=== PATIENT | female | born 1955 | race American Indian/Alaskan Native ===

== ENCOUNTER 2017-01-23 00:37 | Inpatient (IN) | payer MEDICARE ==
[2017-01-23] MEDS ORDERED: NITROSTAT SL PRN (01:02)
--- NOTE | 2017-01-23 01:03 | Emergency Department Report ---
ED Chest Pain HPI - General Chief Complaint: Chest Pain Stated Complaint: CHEST PAIN Time Seen by Provider: 01/23/17 00:50 Source: patient, EMS (ems notes not available at time of chart dictation), RN notes reviewed, old records reviewed Mode of arrival: Stretcher Limitations: No Limitations - History of Present Illness Initial Comments: Past medical history: Diverticulosis, chronic kidney disease, heart disease with multiple stents, currently on Plavix, ischemic cardiac myopathy, diabetes, hypothyroidism, hypertension Primary port warden: Gale Nephrology: Leslie Valenzuela This is a 61-year-old female. She is previously unknown to me. She is brought to the hospital by EMS. She has a complaint of chest pain. The chest pain is central, and left-sided. It radiates to the left shoulder. Positive shortness of breath. No nausea, vomiting, diaphoresis. No hematemesis. No bright red blood per rectum. Patient reports compliance with her medications. She is currently on Plavix, not taking aspirin. There is no leg pain. There is no leg swelling. No recent trips greater than 4 hours. No recent hospital admissions. Patient reports her chest pain is currently a "6", she reports that it was previously a 9. Pain improved with nitroglycerin. MD Complaint: chest pain -: Gradual Onset: during rest Pain Location: left chest Severity: moderate Quality: aching, pressure Consistency: intermittent Improves With: nitroglycerin, rest Worsens With: nothing re: dyspnea Treatments Prior to Arrival: nitroglycerin Aspirin use within the Past 7 Days: (0) No - Related Data On Oral Contraceptives: No Previous Rx's Medication Instructions Recorded Last Taken Type Tramadol HCl [traMADol] 50 mg PO Q6HR #30 tablet 01/31/15 12/30/16 Rx Nitroglycerin [Nitrostat] 0.4 mg SL Q5M PRN #20 tab 05/19/15 01/22/17 Rx Pravastatin (Nf) [Pravachol] 40 mg PO QHS #30 tablet 05/19/15 01/22/17 Rx Clopidogrel [Plavix] 75 mg PO QDAY #30 tablet 12/01/16 01/22/17 Rx Insulin Glargine [Lantus VIAL] 5 units SUB-Q QHS #20 units 12/01/16 01/22/17 Rx Levothyroxine [Synthroid] 75 mcg PO QAM #30 tablet 12/01/16 01/22/17 Rx Metoprolol [Lopressor TAB] 25 mg PO BID #60 tablet 12/01/16 01/22/17 Rx Pantoprazole [Protonix TAB] 40 mg PO QDAY #30 tablet 12/01/16 01/22/17 Rx Ranolazine ER [Ranexa ER] 1,000 mg PO BID #120 tablet 12/01/16 01/22/17 Rx Allergies Allergy/AdvReac Type Severity Reaction Status Date / Time codeine Allergy Vomiting Verified 01/31/15 09:28 penicillin Allergy Vomiting Verified 05/17/15 11:21 prochlorperazine edisylate Allergy Vomiting Verified 01/31/15 09:28 [From Compazine] prochlorperazine maleate Allergy Vomiting Verified 01/31/15 09:28 [From Compazine] ALEJANDRO score - Alejandro Score Age > 65: (0) No Aspirin use within the Past 7 Days: (0) No 3 or more CAD Risk Factors: (1) Yes 2 or more Angina events in past 24 hrs: (0) No Known CAD with more than 50% Stenosis: (0) No Elevated Cardiac Markers: (0) No ST Deviation Greater than 0.5mm: (0) No ALEJANDRO Score: 1 ED Review of Systems ROS: Stated complaint: CHEST PAIN Other details as noted in HPI Constitutional: denies: diaphoresis, fever Eyes: denies: eye discharge ENT: denies: epistaxis Respiratory: see HPI Cardiovascular: chest pain Gastrointestinal: denies: abdominal pain, hematemesis, melena, hematochezia Genitourinary: denies: urgency, dysuria Musculoskeletal: denies: back pain Skin: denies: lesions Neurological: denies: headache, weakness Psychiatric: anxiety ED Past Medical Hx - Past Medical History Previous Medical History?: Yes Hx Hypertension: Yes Hx CVA: Yes (x 3) Hx Heart Attack/AMI: Yes (x3) Hx Congestive Heart Failure: Yes Hx Diabetes: Yes Hx Renal Disease: Yes (chronic) - Surgical History Past Surgical History?: Yes Hx Coronary Stent: Yes (x2 2016) Hx Cholecystectomy: Yes - Social History Smoking Status: Never Smoker - Medications Home Medications: Home Medications Medication Instructions Recorded Confirmed Last Taken Type Tramadol HCl [traMADol] 50 mg PO Q6HR #30 tablet 01/31/15 01/23/17 12/30/16 Rx Nitroglycerin [Nitrostat] 0.4 mg SL Q5M PRN #20 tab 05/19/15 01/23/17 01/22/17 Rx Pravastatin (Nf) [Pravachol] 40 mg PO QHS #30 tablet 05/19/15 01/23/17 01/22/17 Rx Clopidogrel [Plavix] 75 mg PO QDAY #30 tablet 12/01/16 01/23/17 01/22/17 Rx Insulin Glargine [Lantus VIAL] 5 units SUB-Q QHS #20 units 12/01/16 01/23/17 Rx Levothyroxine [Synthroid] 75 mcg PO QAM #30 tablet 12/01/16 01/23/17 01/22/17 Rx Metoprolol [Lopressor TAB] 25 mg PO BID #60 tablet 12/01/16 01/23/17 01/22/17 Rx Pantoprazole [Protonix TAB] 40 mg PO QDAY #30 tablet 12/01/16 01/23/17 01/22/17 Rx Ranolazine ER [Ranexa ER] 1,000 mg PO BID #120 tablet 12/01/16 01/23/17 Rx ED Physical Exam - General Limitations: No Limitations General appearance: alert, in no apparent distress - Head Head exam: Present: atraumatic, normocephalic - Eye Eye exam: Present: normal appearance, EOMI. Absent: nystagmus - ENT ENT exam: Present: normal exam, normal orophraynx, mucous membranes moist, normal external ear exam - Neck Neck exam: Present: normal inspection, full ROM. Absent: tenderness, meningismus - Respiratory Respiratory exam: Present: normal lung sounds bilaterally, chest wall tenderness. Absent: respiratory distress, wheezes, rales, rhonchi, stridor, decreased breath sounds - Cardiovascular Cardiovascular Exam: Present: regular rate, normal rhythm, normal heart sounds. Absent: bradycardia, tachycardia, irregular rhythm, systolic murmur, diastolic murmur, rubs, gallop - GI/Abdominal GI/Abdominal exam: Present: soft, normal bowel sounds. Absent: distended, tenderness, guarding, rebound, rigid, pulsatile mass - Extremities Exam Extremities exam: Present: normal inspection, full ROM, normal capillary refill. Absent: tenderness, pedal edema, joint swelling, calf tenderness - Back Exam Back exam: Present: normal inspection, full ROM. Absent: tenderness, CVA tenderness (R), CVA tenderness (L), muscle spasm, paraspinal tenderness, vertebral tenderness - Neurological Exam Neurological exam: Present: alert, oriented X3, other (Extraocular movements intact. Tongue midline. No facial droop. Facial sensation intact to light touch in the V1, V2, V3 distribution bilaterally. 5 and 5 strength in 4 extremities.. Sensation is intact to light touch in 4 extremities.). Absent: motor sensory deficit - Psychiatric Psychiatric exam: Present: normal affect, normal mood - Skin Skin exam: Present: warm, dry, intact, normal color. Absent: rash ED Course Vital Signs 01/23/17 01/23/17 01/23/17 01:03 01:10 01:48 Temperature 98.3 F Pulse Rate 84 82 Respiratory 17 18 Rate Blood Pressure 140/75 Blood Pressure 140/75 [Left] O2 Sat by Pulse 98 99 100 Oximetry 01/23/17 01/23/17 01/23/17 01:50 02:00 02:10 Temperature Pulse Rate 91 H 79 78 Respiratory 19 18 14 Rate Blood Pressure 140/75 128/72 128/72 Blood Pressure [Left] O2 Sat by Pulse 98 99 98 Oximetry 01/23/17 01/23/17 01/23/17 02:20 02:30 02:40 Temperature Pulse Rate 77 72 79 Respiratory 13 16 11 L Rate Blood Pressure 124/68 135/64 135/64 Blood Pressure [Left] O2 Sat by Pulse 98 96 99 Oximetry 01/23/17 01/23/17 01/23/17 02:50 03:00 03:10 Temperature Pulse Rate 75 75 80 Respiratory 17 16 17 Rate Blood Pressure 133/76 128/66 128/66 Blood Pressure [Left] O2 Sat by Pulse 97 98 97 Oximetry 01/23/17 01/23/17 01/23/17 03:20 03:30 03:40 Temperature Pulse Rate 79 72 73 Respiratory 13 14 16 Rate Blood Pressure 131/70 118/58 118/58 Blood Pressure [Left] O2 Sat by Pulse 99 97 97 Oximetry - Reevaluation(s) Reevaluation #1: 01/23/17 01:23 Differential diagnosis: Acute coronary syndrome/unstable angina, pneumonia, costochondritis, GERD/gastritis Assessment and plan: 61-year-old female with known history of ischemic coronary artery disease, multiple stents, takes Plavix but not aspirin, which has pain that is partially reproducible. She is afebrile with reassuring vital signs, EKG today demonstrates nonspecific changes with compared to prior EKG. There are multiple T-wave inversions. Patient had a cardiac catheterization approximately one year ago at this facility, which demonstrate a complex arterial disease. Laboratory studies, which are less urine, x-ray ordered and pending. Plan to admit once initial data points back. Reevaluation #2: 01/23/17 02:32 Repeat EKG essentially unchanged. Chest pain is improved. Case is discussed with covering port warden, patient will be started on unfractionated heparin. Aspirin has been given. Dr. Chandler, port warden agrees with this plan. Case is discussed with the Hospital physician, Dr. Bradford, who accepts the patient to his service. ED Medical Decision Making - Lab Data Result diagrams: 01/23/17 03:09 01/23/17 01:11 Vital Signs 01/23/17 01:10 Temperature 98.3 F Pulse Rate 82 Respiratory 18 Rate Blood Pressure 140/75 [Left] O2 Sat by Pulse 99 Oximetry Lab Results 01/23/17 Range/Units 01:11 WBC 9.3 (4.5-11.0) K/mm3 RBC 3.01 L (3.65-5.03) M/mm3 Hgb 9.7 L (10.1-14.3) gm/dl Hct 29.1 L (30.3-42.9) % MCV 97 (79-97) fl MCH 32 (28-32) pg MCHC 34 (30-34) % RDW 14.0 (13.2-15.2) % Plt Count 252 (140-440) K/mm3 Lymph % (Auto) 31.7 (13.4-35.0) % Nye % (Auto) 8.3 H (0.0-7.3) % Eos % (Auto) 1.8 (0.0-4.3) % Baso % (Auto) 0.5 (0.0-1.8) % Lymph # 3.0 (1.2-5.4) K/mm3 Nye # 0.8 (0.0-0.8) K/mm3 Eos # 0.2 (0.0-0.4) K/mm3 Baso # 0.0 (0.0-0.1) K/mm3 Seg Neutrophils % 57.7 (40.0-70.0) % Seg Neutrophils # 5.4 (1.8-7.7) K/mm3 - EKG Data -: EKG Interpreted by Me EKG shows normal: sinus rhythm Rate: normal - EKG Data When compared to previous EKG there are: changes noted Interpretation: nonspecific ST-T wave kendra 01/23/17 01:24 EKG demonstrates normal sinus, 84 bpm, QTC 472 ms, T-wave inversions 2, 3, aVF, V4, V5 and V6. Borderline atrial enlargement. When compared to prior EKG from 11/27/2016, inferior T-wave changes are new. When compared to prior EKG, T-wave inversions appear to be new. - Radiology Data Radiology results: image reviewed interpreted by me: X-ray of the chest is negative for acute disease Critical Care Time: Yes Critical care time in (mins) excluding proc time.: 35 Critical care attestation.: If time is entered above; I have spent that time in minutes in the direct care of this critically ill patient, excluding procedure time. Critical Care Time: Critical care time includes multiple bedside reevaluation, interpretation of laboratory studies, radiology studies, time spent managing a patient with possible acute coronary syndrome with EKG changes regarding initiation of heparin drip, consultation with cardiology, hospital medicine. Thisdoes not include procedure time. ED Disposition Clinical Impression: Chest pain, CAD (coronary artery disease), Acute electrocardiogram changes Disposition: OP ADMITTED IP TO THIS HOSP Is pt being admited?: Yes Does the pt Need Aspirin: Yes Condition: Stable Instructions: Chest Pain (ED) Referrals: PRIMARY CARE, [Primary Care Provider] - 3-5 Days
[2017-01-23 01:23] LABS: Basophils % (Auto) 0.5 % (0.0-1.8); Eosinophils % (Auto) 1.8 % (0.0-4.3); Hematocrit 29.1 % (30.3-42.9); Hemoglobin 9.7 gm/dl (10.1-14.3); Mean Corpuscular HGB Conc 34 % (30-34); Mean Corpuscular Hemoglobin 32 pg (28-32); Mean Corpuscular Volume 97 fl (79-97); Platelet Count 252 K/mm3 (140-440); Red Blood Count 3.01 M/mm3 (3.65-5.03); White Blood Count 9.3 K/mm3 (4.5-11.0)
[2017-01-23] MEDS ORDERED: BABY ASPIRIN PO ONE ×2 (01:25→05:17)
[2017-01-23 01:34] LABS: INR 0.97 (0.87-1.13)
[2017-01-23 01:42] LABS: Anion Gap 17 mmol/L; BUN/Creatinine Ratio 9.54; Blood Urea Nitrogen 21 mg/dL (7-17); Calcium 8.6 mg/dL (8.4-10.2); Carbon Dioxide 22 mmol/L (22-30); Chloride 104.6 mmol/L (98-107); Glucose 163 mg/dL (65-100); Potassium 3.8 mmol/L (3.6-5.0); Sodium 140 mmol/L (137-145)
[2017-01-23] MEDS ORDERED: HEPARIN 10,000 UNITS/10 ML IV ONE (02:33)
[2017-01-23] MEDS ORDERED: HEPARIN/ 0.45% NACL-25,000 UNIT/500 ML 25,000 UNIT/500 ML BAG IV SCH (03:00)
--- NOTE | 2017-01-23 03:03 | Admit Criteria Form ---
Admission Criteria Documentation: CARDIOLOGY GRG Clinical Indications for Admission to Inpatient Care ( Place 'X' for any and all applicable criteria): Hospital admission is needed for appropriate care of the patient because of ANY ONE of the following (1): [ ] I. Hemodynamic instability as indicated by ALL of the following (1)(2)(3) (4)(5) [ ]a) Vital signs or other findings not as expected for chronic patient condition or baseline [ ]b) Instability indicated by ANY ONE of the following: [ ]i) Hypotension [ ]ii) Symptomatic Tachycardia unresponsive to treatment ( e.g., analgesia, fluids, sedation as indicated) [ ]iii) Inadequate perfusion indicated by ANY ONE of the following: [ ] 1) Lactic acidosis (> 2 mmol/L) [ ] 2) New abnormal capillary refill (> 3 seconds) [ ] 3) Reduced urine output [ ] 4) New altered mental status [ ]iv) Orthostatic vital sign changes unresponsive to treatment (e.g., fluids) [ ]v) IV inotropic or vasopressor medication required to maintain adequate blood pressure or perfusion [ ] II. Severe heart failure as indicated by ANY ONE of the following(17)(18) [ ]a) Respiratory distress [ ]b) Hypotension [ ]c) Anasarca (refractory to outpatient therapy) [ ]d) Cardiac arrhythmias of immediate concern [ ]e) Myocardial ischemia [ ] III. Cardiac arrhythmias or findings of immediate concern indicated by ANY ONE of the following (19)(20): [ ] a) Heart rhythms that are inherently dangerous or unstable indicated by ANY ONE of the following (21)(22)(23): [ ] i) Resuscitated ventricular fibrillation or cardiac arrest [ ] ii) Ventricular escape rhythm [ ] iii) Sustained ventricular tachycardia (30 seconds or more of ventricular rhythm at greater than 100 beats per minute) [ ] iv) Nonsustained ventricular tachycardia and ANY ONE of the following: [ ] 1) Suspected cardiac ischemia as cause or consequence of ventricular tachycardia [ ] 2) In setting of acute myocarditis [ ] b) Unstable cardiac conduction defects indicated by ANY ONE of the following(23)(24)(25) [ ] i) Type II second-degree atrioventricular block [ ]ii) Third-degree atrioventricular block [ ]iii) New-onset left bundle branch block with suspected myocardial ischemia [ ]c) Any heart rhythm and ANY ONE of the following (21)(22)(26)(27) (28) [ ] i) Continuous long-term ECG monitoring needed (e.g., initiation of drug requiring monitoring for more than 24 hours) [ ] ii) Patient has automatic implanted cardioverter defibrillator that is repeatedly firing, malfunctioning, or in need of immediate adjustment of settings beyond the scope of ambulatory or observation care [ ]d) Heart rhythms of concern due to ANY ONE of the following: [ ] i) Hypotension [ ] ii) Respiratory distress [ ] iii) Association with other significant symptoms (e.g., bradycardia with syncope or ongoing dizziness, supraventricular tachycardia with chest pain (14)(15)(17) [ ] IV. Monitoring for cardiac contusion beyond the scope of observation care needed [A](30)(31)(32) [ ] V. Surgical or device complication (e.g., valve replacement complication , pacemaker dysfunction) (35)(41)(44)(45)(46) [ ] . Inpatient palliative care needed. [B](49) Also use Inpatient Palliative Care Criteria [ ] VII. Nonbacterial thrombotic (marantic) endocarditis (36)(43)(47)(48) [ X] VIII. Cardiology condition, symptom, or finding for which emergency and observation care has failed or are not considered appropriate. [ ] IX. Acute valvular disease requiring inpatient as indicated by ANY ONE of the following (41) [ ]a) Acute valvular regurgitation (42) [ ]b) Noninfectious valvulitis (43) [ ]c) Obstructive valve thrombosis [ ]d) Paravalvular leak [ ]e) Other significant valvular disorder remaining after emergency or observation level of care (as appropriate) [ ]X. Pericardial disease requiring inpatient treatment as indicated by ANY ONE of the following (33)(34)(35)(36)(37) [ ]a) Suspected tamponade (38)(39)(40) [ ]b) Hemopericardium [ ]c) Other significant pericardial disorder remaining after emergency or observation level of care (as appropriate) [ ] XI. Cardiac ischemia beyond scope of emergency and observation care. [ ] XII. Hypertension requiring inpatient treatment as indicated by ANY ONE of the following (6)(7)(8) [ ]a) SBP greater than 220 mm Hg or DBP greater than 120 mmHg despite treatment [ ]b) SBP greater than 140 mm Hg or DBP greater than 100 mm Hg with evidence of acute end organ damage as indicated by ANY ONE of the following [ ] i) Altered mental status [ ] ii) Acute renal failure as indicated by new onset of ANY ONE of the following (9)(10)(11)(12)(13) [ ]1) 3-fold rise in serum creatinine from baseline [ ]2) Serum creatinine greater than 4 mg/dL ( 354 micromoles/L) with acute rise greater than 0.5 mg/dL (44.2 micromoles/L) [ ]3) Reduction of more than 75% in estimated glomerular filtration rate from baseline [ ]4) Estimated glomerular filtration rate less than 35 mL/min/1.73m2 (0.59 mL/sec/1.73m2) in child up to 18 years of age [ ]5) Cessation of urine output indicated by ALL of the following [ ]A. Adequate volume status [ ]B. Inadequate urine output as indicated by ANY ONE of the following [ ]a. Urine output less than 0.3 mL/kg/hr for 24 hours [ ]b. Anuria (urine output less than 0.1 mL/kg/hr) for 12 hours [ ] iii) Aortic dissection [ ] iv) Myocardial Ischemia [ ] v) Left ventricular heart failure [ ]vi) Retinal Hemorrhage [ ]vii) Other significant finding [ ]c) Hypertension in child requiring inpatient treatment as indicated by ALL of the following(14)(15)(16) [ ] i) Outpatient treatment not effective, not available, or not appropriate [ ]ii) SBP or DBP greater than 95th percentile for age [ ]iii) Evidence of acute end organ damage as indicated by ANY ONE of the following [ ]1) Altered mental status [ ]2) Acute renal failure as indicated by new onset of ANY ONE of the following(9)(10)(11)(12)(13) [ ]A. 3-fold rise in serum creatinine from baseline [ ]B. Serum creatinine greater than 4 mg/dL (354 micromoles/L) with acute rise greater than 0.5 mg/dL (44.2 micromoles/L) [ ]C. Reduction of more than 75% in estimated glomerular filtration rate from baseline [ ]D. Estimated glomerular filtration rate less than 35 mL/min/1.73m2 (0.59 mL/sec/1.73m2) in child up to 18 years of age [ ]E. Cessation of urine output indicated by ALL of the following [ ]a. Adequate volume status [ ]b. Inadequate urine output as indicated by ANY ONE of the following [ ]i) Urine output less than 0.3 mL/kg/hr for 24 hours [ ]ii) Anuria ( urine output less than 0.1 mL/kg/hr) for 12 hours [ ]3) Severe headache [ ]4) Visual disturbance [ ]5) Retinal hemorrhage [ ]6) Other significant finding [ ]XIII. Complications of transplanted heart indicated by ANY ONE of the following(61): [ ]a) Acute graft rejection requiring inpatient management (eg, intravenous immunosuppression)(62)(63) [ ]b) Acute graft heart failure indicated by ANY ONE of the following(64): [ ]i) Hemodynamic instability [ ]ii) Cardiac arrhythmias of immediate concern [ ]iii) Pulmonary edema that is very severe (eg, mechanical ventilation needed, imminent or likely, need for 100% oxygen to keep oxygen saturation above 90%) [ ]iv) Pulmonary edema that is persistent as indicated by ALL of the following: [ ]1) New need for oxygen therapy to keep oxygen saturation above 90% (or increased FiO2 need from baseline) [ ]2) Has not improved sufficiently with emergency department or observation care IV diuretics or other heart failure treatments[E] [ ]v) Altered mental status that is severe or persistent [ ]vi) Increased creatinine (new on laboratory test) with reduction of more than 50% in estimated glomerular filtration rate from baseline [ ]vii) Progressively (ongoing) rising creatinine (known from past laboratory test) with reduction of more than 25% in estimated glomerular filtration rate from baseline [ ]viii) Acute renal failure [ ]ix) Acute peripheral ischemia (eg, examination shows pulseless, cool, mottled, or cyanotic extremity) [ ]x) Pulmonary artery catheter monitoring needed [ ]xi) Other sign or symptom of heart failure requiring inpatient treatment (ie, too severe or not responsive to outpatient and observation care treatment) [ ]c) Infection requiring inpatient management (eg, Hemodynamic instability, need for intravenous antimicrobial treatment)(66)(67)(68)(69)(70) [ ]d) Cardiac allograft vasculopathy requiring inpatient management ( eg evidence of cardiac ischemia)(71) [ ]e) Other complication of transplanted heart (eg, stroke, severe pulmonary hypertension, severe valvular dysfunction) requiring inpatient management(72) The original [facility] [employer] content created by [facility] has been revised. The portions of the content which have been revised are identified through the use of italic text or in bold, and [facility] has neither reviewed nor approved the modified material. All other unmodified content is copyright [facility] [employer]. Please see references footnoted in the original [facility] [employer] edition 2016 Admission Criteria Met: Yes
[2017-01-23 04:00] LABS: Hematocrit 26.7 % (30.3-42.9)
[2017-01-23 04:08] LABS: INR 0.95 (0.87-1.13)
[2017-01-23 04:09] LABS: Partial Thromboplastin Time 25.2 Sec. (24.2-36.6)
--- NOTE | 2017-01-23 05:15 | History and Physical Report ---
History of Present Illness Date of examination: 01/23/17 Chief complaint: Chest pain History of present illness: 61-year-old female with past medical history significant for CAD status post stent, stroke, diabetes mellitus, hyperlipidemia, hypertension presented to the emergency department complaining of any chest pain that started yesterday. Pain is on and off. She stated the pain as if an elephant is sitting on her chest, 10 out of 10 in intensity with radiation to the left arm. Patient has been followed with Dr. Beasley. Patient had shortness of breath, diaphoresis while she had chest pain. REVIEW OF SYSTEMS: GENERAL: no weight change, no fatigue, no fever HEAD: no head ache EYES: no blurry vision, no acute visual loss EARS: no hearing loss, no discharge, no earache NOSE: no stuffiness, no sneezing, no discharge MOUTH, THROAT AND NECK: no bleeding gums, no sore throat, no swollen neck CARDIAC: no palpitations, + dyspnea on exertion, no orthopnea, no PND, no edema , + chest pain RESPIRATORY: + shortness of breath, no wheeze, no cough, no sputum, no hemoptysis, no asthma GI: no decreased appetite, no nausea, no vomiting, no dysphagia, no diarrhea, no constipation, no abdominal pain URINARY: no change in frequency, no urgency, no polyuria, no hematuria, no incontinence MUSCULOSKELETAL: no muscle weakness, no pain, no joint stiffness NEUROLOGIC: no loss of sensation/numbness, no tingling, no tremors, no weakness/ paralysis HEMATOLOGIC: no anemia, no easy bruising SKIN: no rashes ENDOCRINE: no heat/cold intolerance, no polyuria, no polydipsia, no thyroid problems, no diabetes PSYCHIATRIC: no anxiety, no depression, no suicidal ideations Past History Past Medical History: anemia, CAD, diabetes, hyperthyroidism, hypertension, hyperlipidemia, renal failure Past Surgical History: cholecystectomy, hysterectomy Social history: full code. denies: smoking, alcohol abuse, prescription drug abuse, IV drug use Family history: CAD, stroke Medications and Allergies Allergies Allergy/AdvReac Type Severity Reaction Status Date / Time codeine Allergy Vomiting Verified 01/31/15 09:28 penicillin Allergy Vomiting Verified 05/17/15 11:21 prochlorperazine edisylate Allergy Vomiting Verified 01/31/15 09:28 [From Compazine] prochlorperazine maleate Allergy Vomiting Verified 01/31/15 09:28 [From Compazine] Home Medications Medication Instructions Recorded Confirmed Last Taken Type Tramadol HCl [traMADol] 50 mg PO Q6HR #30 tablet 01/31/15 01/23/17 12/30/16 Rx Nitroglycerin [Nitrostat] 0.4 mg SL Q5M PRN #20 tab 05/19/15 01/23/17 01/22/17 Rx Pravastatin (Nf) [Pravachol] 40 mg PO QHS #30 tablet 05/19/15 01/23/17 01/22/17 Rx Clopidogrel [Plavix] 75 mg PO QDAY #30 tablet 12/01/16 01/23/17 01/22/17 Rx Insulin Glargine [Lantus VIAL] 5 units SUB-Q QHS #20 units 12/01/16 01/23/17 Rx Levothyroxine [Synthroid] 75 mcg PO QAM #30 tablet 12/01/16 01/23/17 01/22/17 Rx Metoprolol [Lopressor TAB] 25 mg PO BID #60 tablet 12/01/16 01/23/17 01/22/17 Rx Pantoprazole [Protonix TAB] 40 mg PO QDAY #30 tablet 12/01/16 01/23/17 01/22/17 Rx Ranolazine ER [Ranexa ER] 1,000 mg PO BID #120 tablet 12/01/16 01/23/17 Rx Active Meds: Active Medications Heparin Sodium/Sodium Chloride (Heparin/ 0.45% Nacl-25,000 Unit/500 Ml) 25,000 unit in 500 mls @ 20 mls/hr IV TITRATE KELSEY; 1,000 UNITS/HR PRN Reason: Protocol Last Admin: 01/23/17 05:04 Dose: 1,000 units/hr, 20 mls/hr Nitroglycerin (Nitrostat) 0.4 mg SL .Q5MIN PRN PRN Reason: Chest Pain Exam - Physical Exam Narrative exam: Not in cardiopulmonary distress. The patient appeared well nourished and normally developed. Vital signs as documented. Head exam is unremarkable. No scleral icterus . Neck is without jugular venous distension, thyromegaly, or carotid bruits. Lungs are clear to auscultation. Cardiac exam reveals regular rate and Rhythm. First and second heart sounds normal. No murmurs, rubs or gallops. Abdominal exam reveals normal bowel sounds, no masses, no organomegaly and no aortic enlargement. Extremities are nonedematous and both femoral and pedal pulses are normal. SOLID SURFACE FABRICATOR: Alert and oriented 3. No focal weakness. - Constitutional Vitals: Temp Pulse Resp BP Pulse Ox 98.3 F 73 16 118/58 97 01/23/17 01:10 01/23/17 03:40 01/23/17 03:40 01/23/17 03:40 01/23/17 03:40 Results - Labs CBC & Chem 7: 01/23/17 03:09 01/23/17 01:11 Labs: Laboratory Last Values WBC 9.3 K/mm3 (4.5-11.0) 01/23/17 01:11 RBC 3.01 M/mm3 (3.65-5.03) L 01/23/17 01:11 Hgb 9.0 gm/dl (10.1-14.3) L 01/23/17 03:09 Hct 26.7 % (30.3-42.9) L 01/23/17 03:09 MCV 97 fl (79-97) 01/23/17 01:11 MCH 32 pg (28-32) 01/23/17 01:11 MCHC 34 % (30-34) 01/23/17 01:11 RDW 14.0 % (13.2-15.2) 01/23/17 01:11 Plt Count 208 K/mm3 (140-440) 01/23/17 03:09 Lymph % (Auto) 31.7 % (13.4-35.0) 01/23/17 01:11 Walsh % (Auto) 8.3 % (0.0-7.3) H 01/23/17 01:11 Eos % (Auto) 1.8 % (0.0-4.3) 01/23/17 01:11 Baso % (Auto) 0.5 % (0.0-1.8) 01/23/17 01:11 Lymph # 3.0 K/mm3 (1.2-5.4) 01/23/17 01:11 Walsh # 0.8 K/mm3 (0.0-0.8) 01/23/17 01:11 Eos # 0.2 K/mm3 (0.0-0.4) 01/23/17 01:11 Baso # 0.0 K/mm3 (0.0-0.1) 01/23/17 01:11 Seg Neutrophils % 57.7 % (40.0-70.0) 01/23/17 01:11 Seg Neutrophils # 5.4 K/mm3 (1.8-7.7) 01/23/17 01:11 PT 12.6 Sec. (12.2-14.9) 01/23/17 03:09 INR 0.95 (0.87-1.13) 01/23/17 03:09 APTT 25.2 Sec. (24.2-36.6) 01/23/17 03:09 Sodium 140 mmol/L (137-145) 01/23/17 01:11 Potassium 3.8 mmol/L (3.6-5.0) 01/23/17 01:11 Chloride 104.6 mmol/L (98-107) 01/23/17 01:11 Carbon Dioxide 22 mmol/L (22-30) 01/23/17 01:11 Anion Gap 17 mmol/L 01/23/17 01:11 BUN 21 mg/dL (7-17) H 01/23/17 01:11 Creatinine 2.2 mg/dL (0.7-1.2) H 01/23/17 01:11 Estimated GFR 27 ml/min 01/23/17 01:11 BUN/Creatinine Ratio 9.54 % 01/23/17 01:11 Glucose 163 mg/dL (65-100) H 01/23/17 01:11 Calcium 8.6 mg/dL (8.4-10.2) 01/23/17 01:11 Troponin T 0.013 ng/mL (0.00-0.029) 01/23/17 03:09 Assessment and Plan Assessment and plan: Chest pain with EKG changes Hypertension Diabetes mellitus History of stroke Anemia CKD - Cardiology consulted - Patient is on ACS protocol - Restart home medications - Sliding-scale insulin DVT prophylaxis - Patient is on heparin drip Disposition - Admit to telemetry Advance Directives: Yes VTE prophylaxis?: Chemical Plan of care discussed with patient/family: Yes
[2017-01-23] MEDS: SYNTHROID PO SCH (06:39)
--- NOTE | 2017-01-23 09:12 | Consultation ---
History of Present Illness Consult date: 01/23/17 Consult reason: chest pain History of present illness: Patient is presenting with chest pain consistent with her symptoms of stable angina. Patient admits running out of Ranexa 2 days ago. Patient also states that she typically gets this chest pain when she does not take her Ranexa. She is compliant with plavix therapy. Troponin are negative x 2 and her current ECG is unchanged when compared to study done 12/16/2016 as outpatient. Past History Past Medical History: anemia, CAD, diabetes, hyperthyroidism, hypertension, hyperlipidemia, renal failure Past Surgical History: cholecystectomy, hysterectomy Social history: full code. denies: smoking, alcohol abuse, prescription drug abuse, IV drug use Family history: CAD, stroke Medications and Allergies Allergies Allergy/AdvReac Type Severity Reaction Status Date / Time codeine Allergy Vomiting Verified 01/31/15 09:28 penicillin Allergy Vomiting Verified 05/17/15 11:21 prochlorperazine edisylate Allergy Vomiting Verified 01/31/15 09:28 [From Compazine] prochlorperazine maleate Allergy Vomiting Verified 01/31/15 09:28 [From Compazine] Home Medications Medication Instructions Recorded Confirmed Last Taken Type Tramadol HCl [traMADol] 50 mg PO Q6HR #30 tablet 01/31/15 01/23/17 12/30/16 Rx Nitroglycerin [Nitrostat] 0.4 mg SL Q5M PRN #20 tab 05/19/15 01/23/17 01/22/17 Rx Pravastatin (Nf) [Pravachol] 40 mg PO QHS #30 tablet 05/19/15 01/23/17 01/22/17 Rx Clopidogrel [Plavix] 75 mg PO QDAY #30 tablet 12/01/16 01/23/17 01/22/17 Rx Insulin Glargine [Lantus VIAL] 5 units SUB-Q QHS #20 units 12/01/16 01/23/17 Rx Levothyroxine [Synthroid] 75 mcg PO QAM #30 tablet 12/01/16 01/23/17 01/22/17 Rx Metoprolol [Lopressor TAB] 25 mg PO BID #60 tablet 12/01/16 01/23/17 01/22/17 Rx Pantoprazole [Protonix TAB] 40 mg PO QDAY #30 tablet 12/01/16 01/23/17 01/22/17 Rx Ranolazine ER [Ranexa ER] 1,000 mg PO BID #120 tablet 12/01/16 01/23/17 Rx Active Meds: Active Medications Clopidogrel Bisulfate (Plavix) 75 mg PO QDAY [facility] Heparin Sodium/Sodium Chloride (Heparin/ 0.45% Nacl-25,000 Unit/500 Ml) 25,000 unit in 500 mls @ 20 mls/hr IV TITRATE KELSEY; 1,000 UNITS/HR PRN Reason: Protocol Last Admin: 01/23/17 05:04 Dose: 1,000 units/hr, 20 mls/hr Insulin Detemir (Levemir) 5 units SUB-Q QHS [facility] Levothyroxine Sodium (Synthroid) 75 mcg PO 0600 [facility] Last Admin: 01/23/17 06:39 Dose: 75 mcg Metoprolol Tartrate (Lopressor) 25 mg PO BID [facility] Nitroglycerin (Nitrostat) 0.4 mg SL .Q5MIN PRN PRN Reason: Chest Pain Pantoprazole Sodium (Protonix) 40 mg PO QDAY [facility] Ranolazine (Ranexa Er) 1,000 mg PO BID KELSEY Simvastatin (Zocor) 20 mg PO QHS [facility] Review of Systems All systems: negative Physical Examination Vital Signs Pulse Resp Pulse Ox 84 17 98 01/23/17 01:03 01/23/17 01:03 01/23/17 01:03 General appearance: no acute distress HEENT: Positive: PERRL Neck: Positive: neck supple Cardiac: Positive: Reg Rate and Rhythm Lungs: Positive: Normal Exam Neuro: Positive: Grossly Intact Abdomen: Positive: Soft Results 01/23/17 03:09 01/23/17 01:11 EKG interpretations - Telemetry EKG Rhythm: Sinus Rhythm Assessment and Plan Chronic stable angina, CCS II Worsened after running out of Ranexa x 2 days CAD 01/2016: s/p PCI to proximal LAD with rotational atherectomy and placement of a 4.0x18 mm LAWSON through denovo LAWSON struts 01/2016: s/p PCI to Cx with LAWSON Ischemic cardiomyopathy, LVEF 40-45% Moderate mitral regurgitation Recent history of rectal bleeding requiring blood transfusions Chronic renal failure Anemia Hypothyroidism Recommendations: Resume Ranexa 1000 mg po bid, IMdur 60 mg po daily, toprol XL 50 mg po daily Discontinue IV heparin Change to SC lovenox for DVT prophylaxis Ambulate in hallway May go home if symptoms improve after restarting Ranexa and Imdur
--- NOTE | 2017-01-23 09:55 | XRay Report ---
Single view chest: Compared to 11/27/16. History: Chest pain. Findings: Normal cardiomediastinal silhouette. Trachea is midline. No consolidation, pneumothorax or pleural effusion. Impression: No acute cardiopulmonary findings.
[2017-01-23] MEDS ORDERED: LOPRESSOR PO SCH (10:00)
[2017-01-23] MEDS: TOPROL XL PO SCH (10:22)
[2017-01-23] MEDS: PROTONIX PO SCH (10:22)
[2017-01-23] MEDS: RANEXA ER PO SCH ×2 (10:22→22:00)
[2017-01-23] MEDS: IMDUR PO SCH (10:23)
[2017-01-23] MEDS: PLAVIX PO SCH (10:23)
--- NOTE | 2017-01-23 16:15 | Event Note ---
Date: 01/23/17 61-year-old female with past medical history significant for CAD status post stent, stroke, diabetes mellitus, hyperlipidemia, hypertension presented to the emergency department complaining of any chest pain that started yesterday. her CE not significantly elevated. cardiology following, increased the dose of renexa. If remains asymptomatic will d/c tomorrow.
[2017-01-23] MEDS ORDERED: LEVEMIR SUB-Q SCH (22:00)
[2017-01-23] MEDS ORDERED: LOVENOX SUB-Q SCH ×2 (22:00)
[2017-01-23] MEDS ORDERED: ZOCOR PO SCH (22:00)
[2017-01-23] MEDS ORDERED: NON-FORMULARY (Insulin Glargine 5 UNITS) SUB-Q SCH (22:00)
[2017-01-24] MEDS: SYNTHROID PO SCH (05:44)
[2017-01-24 06:15] LABS: BUN/Creatinine Ratio 8.4; Calcium 8.3 mg/dL (8.4-10.2); Chloride 106.5 mmol/L (98-107); Potassium 4.1 mmol/L (3.6-5.0)
--- NOTE | 2017-01-24 09:01 | Progress Note ---
Assessment and Plan Chronic stable angina, CCS II Worsened after running out of Ranexa x 2 days CAD 01/2016: s/p PCI to proximal LAD with rotational atherectomy and placement of a 4.0x18 mm LAWSON through denovo LAWSON struts 01/2016: s/p PCI to Cx with LAWSON Ischemic cardiomyopathy, LVEF 40-45% Moderate mitral regurgitation Recent history of rectal bleeding requiring blood transfusions Chronic renal failure Anemia Hypothyroidism Recommendations: May go home on current medication regimen Follow-up with Dr Beasley as scheduled Subjective Date of service: 01/24/17 Principal diagnosis: Chest Pain Interval history: Patient is feeling better. She walked down the hallway without distress Objective Vital Signs Temp Pulse Pulse Resp BP BP Pulse Ox 01/24/17 07:17 98.8 F 77 20 103/58 97 01/24/17 05:38 98.2 F 76 20 131/59 98 01/24/17 00:42 98.6 F 72 20 110/56 99 01/23/17 23:36 70 01/23/17 21:10 98.6 F 74 20 121/65 97 01/23/17 15:46 98.8 F 83 18 109/58 98 01/23/17 13:02 99 01/23/17 12:49 70 01/23/17 11:23 97.7 F 79 18 119/65 97 01/23/17 10:23 72 124/64 01/23/17 10:22 72 124/64 - Physical Examination HEENT: Positive: PERRL Neck: Positive: neck supple Cardiac: Positive: Reg Rate and Rhythm Lungs: Positive: Normal Exam Neuro: Positive: Grossly Intact Abdomen: Positive: Soft - Labs and Meds Comprehensive Metabolic Panel 01/24/17 Range/Units 03:58 Sodium 141 (137-145) mmol/L Potassium 4.1 (3.6-5.0) mmol/L Chloride 106.5 (98-107) mmol/L Carbon Dioxide 21 L (22-30) mmol/L BUN 21 H (7-17) mg/dL Creatinine 2.5 H (0.7-1.2) mg/dL Glucose 107 H (65-100) mg/dL Calcium 8.3 L (8.4-10.2) mg/dL
[2017-01-24 11:23] VITALS: BP 120/66
--- NOTE | 2017-01-24 11:23 | Discharge Summary ---
Providers - Providers Date of Admission: 01/23/17 05:15 Date of discharge: 01/24/17 Attending physician: CAPO DICKENS Primary care physician: CONVERSION MAN Hospitalization Condition: Stable Hospital course: Patient is a 61 F presented with chest pain after running out of Ranexa 2 days ago. Patient also stated that she typically gets this chest pain when she does not take her Ranexa. She is compliant with plavix therapy. Troponin noted to be negative x 2 and her current ECG is unchanged when compared to study done 2016 as outpatient. She was placed back of renexa and evaluated by cardiology and no further intervention recommended. Her chest pain resolved, she was discharged home in stable condition. Discharge Diagnosis: Chronic stable angina, CCS II Worsened after running out of Ranexa x 2 days, now resolved CAD 01/2016: s/p PCI to proximal LAD with rotational atherectomy and placement of a 4.0x18 mm LAWSON through denovo LAWSON struts 01/2016: s/p PCI to Cx with LAWSON Ischemic cardiomyopathy, LVEF 40-45%, compensated Moderate mitral regurgitation, out pt cardiology follow up Recent history of rectal bleeding requiring blood transfusions, H and H stable Chronic renal failure, Cr at baseline Anemia likely due to CKD Hypothyroidism, on synthroid Disposition: DISCHARGED TO HOME OR SELFCARE Time spent for discharge: 32 minutes Core Measure Documentation - Palliative Care Palliative Care/ Comfort Measures: Not Applicable - Core Measures Any of the following diagnoses?: none Exam - Constitutional Vitals: Temp Pulse Resp BP Pulse Ox 98.8 F 77 20 103/58 97 01/24/17 07:17 01/24/17 07:17 01/24/17 07:17 01/24/17 07:17 01/24/17 07:17 General appearance: Present: no acute distress - EENT Eyes: Present: EOM intact ENT: clear oral mucosa - Neck Neck: Present: normal ROM - Respiratory Respiratory effort: normal Respiratory: bilateral: CTA - Cardiovascular Rhythm: regular Heart Sounds: Present: S1 & S2 - Extremities Extremities: no ischemia Peripheral Pulses: within normal limits - Abdominal General gastrointestinal: Present: soft, non-tender - Integumentary Integumentary: Present: warm, dry - Psychiatric Psychiatric: appropriate mood/affect - Neurologic Neurologic: no focal deficits Plan Activity: advance as tolerated Weight Bearing Status: Non-Weight Bearing Diet: low fat, low cholesterol Follow up with: PRIMARY CARE, [Primary Care Provider] - 3-5 Days Prescriptions: AtorvaSTATin [Lipitor] 80 mg PO QHS #30 tablet Metoprolol [Lopressor TAB] 25 mg PO BID #60 tablet Ranolazine ER [Ranexa ER] 1,000 mg PO BID #120 tablet
[2017-01-24] MEDS: IMDUR PO SCH (11:38)
[2017-01-24] MEDS: PROTONIX PO SCH (11:39)
[2017-01-24] MEDS: RANEXA ER PO SCH (11:39)
[2017-01-24] MEDS: PLAVIX PO SCH (11:39)
[2017-01-24] MEDS: TOPROL XL PO SCH (11:39)
--- NOTE | 2017-01-28 08:05 | Query- Chest Pain ---
Maricruz Grey____Sathish Date: 01/28/17 Outside Sales Associate/CDS: Jonny / Theresa Phone#: [phone] Exercise your independent professional judgment when responding to query. Questions asked do not imply a particular answer is desired or expected. We greatly appreciate your clarification on this issue. Clinical Documentation States: 61 year old female was admitted on 01/23/17. The H&P states " Assessment and plan: Chest pain with EKG changes " The Cardiology progress note(01/24/17) states: " Chronic stable angina, CCS II Worsened after running out of Ranexa x 2 days CAD 01/2016: s/p PCI to proximal LAD with rotational atherectomy and placement of a 4.0x18 mm LAWSON through denovo LAWSON struts 01/2016: s/p PCI to Cx with LAWSON Ischemic cardiomyopathy, LVEF 40-45% Moderate mitral regurgitation " Please document the etiology of Chest Pain: [ ] Myocardial Infarction [ ] Pneumonia [ ] Mediastinitis [ ] Costochondritis [ ] Pulmonary Embolism [ x] Coronary Artery Disease [ ] GERD [ ] Other: [ ] Comment/Explanation: Present on Admission: [ X] Yes (Y) [ ] Clinically undeterminable (W) [ ] No(N) Please document response in your Progress Notes and/or Discharge Summary and indicate if the condition was present on admission. JOVITA
== END 2017-01-24 14:03 | disposition home or self-care (01) | DRG 303 ==
LOC: ED 00:37 → 4A 05:15
PROVIDERS: ADMIT Internal Medicine; ATTEND Internal Medicine
DX: I25.118 Atherosclerotic heart disease of native coronary artery with other forms of angina pectoris (principal); I13.0 Hypertensive heart and chronic kidney disease with heart failure and stage 1 through stage 4 chronic kidney disease, or unspecified chronic kidney disease; K57.90 Diverticulosis of intestine, part unspecified, without perforation or abscess without bleeding; E11.22 Type 2 diabetes mellitus with diabetic chronic kidney disease; N18.9 Chronic kidney disease, unspecified; I50.9 Heart failure, unspecified; I25.5 Ischemic cardiomyopathy; E03.9 Hypothyroidism, unspecified; I34.0 Nonrheumatic mitral (valve) insufficiency; D63.1 Anemia in chronic kidney disease; Z88.0 Allergy status to penicillin; Z88.6 Allergy status to analgesic agent; Z88.8 Allergy status to other drugs, medicaments and biological substances; Z98.61 Coronary angioplasty status; Z86.73 Personal history of transient ischemic attack (TIA), and cerebral infarction without residual deficits; Z90.49 Acquired absence of other specified parts of digestive tract; Z90.710 Acquired absence of both cervix and uterus
CPT/HCPCS: 36415; 71010; 80048; 82962; 84484; 85014; 85018; 85025; 85049; 85610; 85730; 93005; 93010; 96374; 96375; A9270-GY; J1644; J1650; J1818

== ENCOUNTER 2017-02-22 14:19 | Emergency (ER) | payer MEDICARE ==
[2017-02-22] MEDS ORDERED: TYLENOL PO ONE (16:34)
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
[2017-02-22 18:02] VITALS: BP 142/79
--- NOTE | 2017-02-23 08:07 | XRay Report ---
LEFT ELBOW, 3 views: History: Left arm pain The bony architecture is intact without evidence of fracture or dislocation. Small olecranon spur is noted. No significant soft tissue abnormality is seen. IMPRESSION: Small olecranon spur.
--- NOTE | 2017-02-23 08:08 | XRay Report ---
LEFT HIP, 2 views: History: Left hip pain. The bony architecture is intact without evidence of fracture or dislocation. Mild osteoarthritic changes are noted. No significant soft tissue abnormality is seen. IMPRESSION: Mild osteoarthritic changes. No acute process detected.
== END 2017-02-22 18:23 | disposition home or self-care (01) ==
LOC: ED 14:19
DX: S06.0X0A Concussion without loss of consciousness, initial encounter (principal); S50.02XA Contusion of left elbow, initial encounter; S70.02XA Contusion of left hip, initial encounter; I10 Essential (primary) hypertension; I63.9 Cerebral infarction, unspecified; I25.2 Old myocardial infarction; I50.9 Heart failure, unspecified; E11.9 Type 2 diabetes mellitus without complications; Z88.5 Allergy status to narcotic agent; Z88.0 Allergy status to penicillin; Z88.8 Allergy status to other drugs, medicaments and biological substances; Z79.4 Long term (current) use of insulin; V29.49XA Motorcycle driver injured in collision with other motor vehicles in traffic accident, initial encounter; Y93.89 Activity, other specified; Y99.9 Unspecified external cause status; Y92.89 Other specified places as the place of occurrence of the external cause
CPT/HCPCS: 70450

== ENCOUNTER 2019-03-20 00:15 | Inpatient (IN) | payer MEDICARE ==
[2019-03-20] MEDS ORDERED: NORMODYNE IV ONE ×2 (00:37→01:49)
[2019-03-20] MEDS ORDERED: NITRO-BID 2% TP ONE (00:37)
[2019-03-20 00:54] LABS: Basophils % (Auto) 0.6 % (0.0-1.8); Eosinophils # (Auto) 0.1 K/mm3 (0.0-0.4); Eosinophils % (Auto) 2.2 % (0.0-4.3); Hematocrit 27.6 % (30.3-42.9); Lymphocytes # (Auto) 1.9 K/mm3 (1.2-5.4); Lymphocytes % (Auto) 28.9 % (13.4-35.0); Mean Corpuscular HGB Conc 33 % (30-34); Mean Corpuscular Volume 92 fl (79-97); Monocytes # (Auto) 0.6 K/mm3 (0.0-0.8); Monocytes % (Auto) 9.8 % (0.0-7.3); Platelet Count 245 K/mm3 (140-440); Red Cell Distribution Width 15.9 % (13.2-15.2)
--- NOTE | 2019-03-20 00:56 | Emergency Department Report ---
ED Chest Pain HPI - General Chief Complaint: Chest Pain Stated Complaint: CHEST PAIN Time Seen by Provider: 03/20/19 00:29 Source: patient, EMS Mode of arrival: Stretcher Limitations: No Limitations - History of Present Illness Initial Comments: Mrs. Byrd is a 63-year-old female past medical history of CAD, angina, hypertension, dyslipidemia, diabetes, hypothyroidism, CKD, ischemic cardiomyopathy who presents with severe 10 out of 10 left-sided chest pain sharp beginning this evening. Pain is similar to previous anginal episodes. Denies fever. Denies cough. Denies extremity pain. Only minimal relief with Nitro per EMS. Did receive aspirin per EMS. She cannot recall her medications. She does not know if she is taking Plavix. PCP Dr. Domingo Marc Quality Control Scientist Dr. Gale JIN Complaint: chest pain -: Gradual, This evening Onset: during rest Pain Location: substernal, left chest Pain Radiation: LUE Severity: severe Severity scale (0 -10): 10 Quality: sharp Consistency: constant Improves With: nitroglycerin Worsens With: nothing re: nausea, dyspnea - Related Data Previous Rx's Medication Instructions Recorded Last Taken Type Nitroglycerin [Nitrostat] 0.4 mg SL Q5M PRN #20 tab 05/19/15 02/22/17 Rx Clopidogrel [Plavix] 75 mg PO QDAY #30 tablet 12/01/16 02/22/17 Rx Insulin Glargine [Lantus VIAL] 5 units SUB-Q QHS #20 units 12/01/16 02/21/17 Rx Levothyroxine [Synthroid] 75 mcg PO QAM #30 tablet 12/01/16 02/22/17 Rx Pantoprazole [Protonix TAB] 40 mg PO QDAY #30 tablet 12/01/16 02/22/17 Rx AtorvaSTATin [Lipitor] 80 mg PO QHS #30 tablet 01/24/17 Unknown Rx Metoprolol [Lopressor TAB] 25 mg PO BID #60 tablet 01/24/17 02/22/17 Rx Ranolazine ER [Ranexa ER] 1,000 mg PO BID #120 tablet 01/24/17 02/22/17 Rx Allergies Allergy/AdvReac Type Severity Reaction Status Date / Time codeine Allergy Vomiting Verified 01/31/15 09:28 penicillin Allergy Vomiting Verified 05/17/15 11:21 prochlorperazine edisylate Allergy Vomiting Verified 01/31/15 09:28 [From Compazine] prochlorperazine maleate Allergy Vomiting Verified 01/31/15 09:28 [From Compazine] Heart Score - HEART Score History: Highly suspicious EKG: Non-specific Age: > 65 Risk factors: > 3 risk factors or hx of atherosclerotic disease Troponin: 1-3x normal limit HEART Score: 8 ED Review of Systems ROS: Stated complaint: CHEST PAIN Other details as noted in HPI Comment: All other systems reviewed and negative Constitutional: denies: fever, malaise Respiratory: denies: cough Cardiovascular: chest pain ED Past Medical Hx - Past Medical History Previous Medical History?: Yes Hx Hypertension: Yes Hx CVA: Yes (x 3) Hx Heart Attack/AMI: Yes (x3) Hx Congestive Heart Failure: Yes Hx Diabetes: Yes Hx Renal Disease: Yes (chronic) - Surgical History Hx Coronary Stent: Yes (x2 2016) Hx Cholecystectomy: Yes - Social History Smoking Status: Never Smoker Substance Use Type: None - Medications Home Medications: Home Medications Medication Instructions Recorded Confirmed Last Taken Type Nitroglycerin [Nitrostat] 0.4 mg SL Q5M PRN #20 tab 05/19/15 01/23/17 02/22/17 Rx Clopidogrel [Plavix] 75 mg PO QDAY #30 tablet 12/01/16 01/23/17 02/22/17 Rx Insulin Glargine [Lantus VIAL] 5 units SUB-Q QHS #20 units 12/01/16 01/23/17 02/21/17 Rx Levothyroxine [Synthroid] 75 mcg PO QAM #30 tablet 12/01/16 01/23/17 02/22/17 Rx Pantoprazole [Protonix TAB] 40 mg PO QDAY #30 tablet 12/01/16 02/22/17 02/22/17 Rx AtorvaSTATin [Lipitor] 80 mg PO QHS #30 tablet 01/24/17 Unknown Rx Metoprolol [Lopressor TAB] 25 mg PO BID #60 tablet 01/24/17 02/22/17 Rx Ranolazine ER [Ranexa ER] 1,000 mg PO BID #120 tablet 01/24/17 02/22/17 Rx ED Physical Exam - General Limitations: No Limitations General appearance: alert, in no apparent distress, in distress (appears in pain anxious) - Head Head exam: Present: atraumatic, normocephalic - Eye Eye exam: Present: normal appearance - ENT ENT exam: Present: mucous membranes moist - Neck Neck exam: Present: normal inspection, full ROM - Respiratory Respiratory exam: Present: normal lung sounds bilaterally. Absent: respiratory distress, wheezes, rales, rhonchi - Cardiovascular Cardiovascular Exam: Present: regular rate, normal rhythm, normal heart sounds. Absent: systolic murmur, diastolic murmur, rubs, gallop - GI/Abdominal GI/Abdominal exam: Present: soft, normal bowel sounds. Absent: distended, tenderness, guarding, rebound - Extremities Exam Extremities exam: Present: normal inspection - Back Exam Back exam: Present: normal inspection - Neurological Exam Neurological exam: Present: alert, oriented X3 - Psychiatric Psychiatric exam: Present: normal affect, anxious - Skin Skin exam: Present: warm, dry, intact, normal color. Absent: rash ED Course Vital Signs 03/20/19 03/20/19 03/20/19 01:03 01:13 01:14 Temperature 97.9 F Pulse Rate 97 H 87 87 Respiratory 25 H Rate Blood Pressure 207/100 207/100 Blood Pressure 205/109 [Right] O2 Sat by Pulse 97 Oximetry ALEJANDRO score - Alejandro Score Age > 65: (0) No Aspirin use within the Past 7 Days: (0) No 3 or more CAD Risk Factors: (1) Yes 2 or more Angina events in past 24 hrs: (0) No Known CAD with more than 50% Stenosis: (0) No Elevated Cardiac Markers: (0) No ST Deviation Greater than 0.5mm: (0) No ALEJANDRO Score: 1 ED Medical Decision Making - Lab Data Result diagrams: 03/20/19 00:41 03/20/19 00:41 - EKG Data 03/20/19 00:55 EKG obtained 0026 Normal sinus rhythm rate 95 beats a minute normal axis prolonged QT interval nonspecific T wave pattern no significant escalation - Radiology Data Radiology results: report reviewed CHF findings according to radiology report AP portable chest one view - Medical Decision Making 1. Acute coronary syndrome, unstable angina, pain greatly improved with nitroglycerin paste and blood pressure control. I do not suspect pulmonary embolus or dissection with this presentation. 2. Acute on chronic kidney injury 3. Hypertensive emergency treated with IV labetalol and nitro paste 4. Abnormal chest radiograph with findings of volume overload, CHF. No evidence of respiratory distress. Critical care attestation.: If time is entered above; I have spent that time in minutes in the direct care of this critically ill patient, excluding procedure time. ED Disposition Clinical Impression: Acute coronary syndrome, Unstable angina, [id number] kidney injury, Hypertensive emergency, CHF (congestive heart failure) Disposition: OP ADMIT IP TO THIS HOSP Is pt being admited?: Yes Does the pt Need Aspirin: No Condition: Stable
[2019-03-20 01:18] LABS: Calcium 9.4 mg/dL (8.4-10.2)
--- NOTE | 2019-03-20 01:23 | XRay Report ---
EXAM: XR CHEST 1V AP HISTORY: Chest Pain TECHNIQUE: AP chest x-ray dated 03/20/2019 at 12:30 AM. COMPARISON: None available FINDINGS: There is evidence for cardiomegaly. The pulmonary vascularity and interstitial markings are diffusely prominent, consistent with mild CHF or volume overload in the appropriate clinical setting; differen tial diagnosis includes (but is not limited to) bronchitis and bronchopneumonia in the appropriate cl inical setting. There is no gross focal lung consolidation, pleural effusion, or pneumothorax seen. The visualized alejandro ny structures are within normal limits. IMPRESSION: 1. Findings consistent with mild CHF or volume overload in the appropriate clinical setting; DDX in cludes bronchitis and bronchopneumonia in the appropriate clinical setting. Clinical correlation is a dvised. This document is electronically signed by Prince Wilson MD., Mar 20 2019 01:21:24 AM ET
[2019-03-20] MEDS ORDERED: SODIUM CHLORIDE FLUSH SYRINGE 10 ML IV PRN ×2 (02:24→02:31)
[2019-03-20] MEDS ORDERED: ZOFRAN IV PRN (02:24)
[2019-03-20] MEDS ORDERED: TYLENOL PO PRN (02:24)
--- NOTE | 2019-03-20 02:38 | History and Physical Report ---
<NURIA GIBSON - Last Filed: 03/20/19 03:08> History of Present Illness Date of examination: 03/20/19 Date of admission: 03/20/2019 Chief complaint: chest pain prior to arrival. History of present illness: Pt is a 63-year-old female with PMHx of CAD, CHF, ischemic cardiomyopathy, angina, HTN, hyperlipidemia, DM type 2, hypothyroidism, CKD, possible CVA with left-sided weakness, who presents to the ER with c/o chest pain started tonight. Pt states that she was up she used the bathroom when the chest pain started, patient describes a sharp intermittent pain, located in the left substernal area radiating to her left shoulder and arm. Patient states that she used her only nitroglycerin pills that she had left without improvement of the pain, she asks her daughter to called EMS to take her to the ER. Patient states that she had similar chest pain in the past which relief with nitroglycerin, she saw her medicaid eligibility specialist about 4 months ago for a follow-up. Patient denied any recent illness, she denies palpitation, denies diaphoresis, denies nausea or vomiting, denies fever or chills. Patient reports an episode of right-sided sided facial droop, drooling, while she was visiting her son in [place] about a month ago but she didn't come to the ER. Past History Past Medical History: CAD, diabetes, heart failure, hypertension, hyperlipidemia, stroke Past Surgical History: No surgical history Social history: no significant social history, lives with family Family history: no significant family history Medications and Allergies Allergies Allergy/AdvReac Type Severity Reaction Status Date / Time codeine Allergy Vomiting Verified 01/31/15 09:28 penicillin Allergy Vomiting Verified 05/17/15 11:21 prochlorperazine edisylate Allergy Vomiting Verified 01/31/15 09:28 [From Compazine] prochlorperazine maleate Allergy Vomiting Verified 01/31/15 09:28 [From Compazine] Home Medications Medication Instructions Recorded Confirmed Last Taken Type Nitroglycerin [Nitrostat] 0.4 mg SL Q5M PRN #20 tab 05/19/15 03/20/19 02/22/17 Rx Insulin Glargine [Lantus VIAL] 5 units SUB-Q QHS #20 units 12/01/16 03/20/19 02/21/17 Rx Levothyroxine [Synthroid] 75 mcg PO QAM #30 tablet 12/01/16 03/20/19 02/22/17 Rx Pantoprazole [Protonix TAB] 40 mg PO QDAY #30 tablet 12/01/16 03/20/19 02/22/17 Rx AtorvaSTATin [Lipitor] 80 mg PO QHS #30 tablet 01/24/17 03/20/19 Unknown Rx Metoprolol [Lopressor TAB] 25 mg PO BID #60 tablet 01/24/17 03/20/19 02/22/17 Rx Ranolazine ER [Ranexa ER] 1,000 mg PO BID #120 tablet 01/24/17 03/20/19 02/22/17 Rx Aspirin 81 mg PO DAILY 03/20/19 03/20/19 Unknown History Pregabalin [Lyrica] 1 cap PO DAILY 03/20/19 03/20/19 Unknown History Sodium Bicarbonate 650 mg PO TID 03/20/19 03/20/19 Unknown History Sucralfate [Carafate] 1 gm PO TID 03/20/19 03/20/19 Unknown History ISOSORBIDE MONOnitrate [Imdur ER] 60 mg PO QDAY #30 tablet 03/21/19 Unknown Rx Active Meds: Active Medications Acetaminophen (Tylenol) 650 mg PO Q4H PRN PRN Reason: Pain MILD(1-3)/Fever >100.5/SOTELO Aspirin (Ecotrin) 325 mg PO QDAY [facility] Heparin Sodium (Porcine) (Heparin) 5,000 unit SUB-Q Q12HR [facility] Ondansetron HCl (Zofran) 4 mg IV Q8H PRN PRN Reason: Nausea And Vomiting Sodium Chloride (Sodium Chloride Flush Syringe 10 Ml) 10 ml IV BID [facility] Sodium Chloride (Sodium Chloride Flush Syringe 10 Ml) 10 ml IV PRN PRN PRN Reason: LINE FLUSH Sodium Chloride (Sodium Chloride Flush Syringe 10 Ml) 10 ml IV PRN PRN PRN Reason: LINE FLUSH Review of Systems Ears, nose, mouth and throat: deferred Breasts: deferred Cardiovascular: chest pain Respiratory: shortness of breath Exam - Constitutional Vitals: Temp Pulse Resp BP Pulse Ox 97.9 F 71 17 160/74 100 03/20/19 01:03 03/20/19 02:30 03/20/19 02:30 03/20/19 02:30 03/20/19 02:30 General appearance: Present: mild distress - EENT Eyes: Present: EOM intact ENT: hearing intact - Neck Neck: Present: normal ROM - Respiratory Respiratory effort: normal Respiratory: bilateral: CTA - Cardiovascular Rhythm: regular Heart Sounds: Present: S1 & S2 - Extremities Extremities: no ischemia Peripheral Pulses: within normal limits - Abdominal General gastrointestinal: Present: non-tender, non-distended Female genitourinary: Present: deferred - Rectal Rectal Exam: deferred - Integumentary Integumentary: Present: warm, dry - Musculoskeletal Musculoskeletal: generalized weakness - Psychiatric Psychiatric: cooperative - Neurologic Neurologic: moves all extremities - Allied Health Allied health notes reviewed: case management Results - Labs CBC & Chem 7: 03/20/19 00:41 03/20/19 00:41 Labs: Laboratory Last Values WBC 6.6 K/mm3 (4.5-11.0) 03/20/19 00:41 RBC 3.00 M/mm3 (3.65-5.03) L 03/20/19 00:41 Hgb 9.0 gm/dl (10.1-14.3) L 03/20/19 00:41 Hct 27.6 % (30.3-42.9) L 03/20/19 00:41 MCV 92 fl (79-97) 03/20/19 00:41 MCH 30 pg (28-32) 03/20/19 00:41 MCHC 33 % (30-34) 03/20/19 00:41 RDW 15.9 % (13.2-15.2) H 03/20/19 00:41 Plt Count 245 K/mm3 (140-440) 03/20/19 00:41 Lymph % (Auto) 28.9 % (13.4-35.0) 03/20/19 00:41 Otero % (Auto) 9.8 % (0.0-7.3) H 03/20/19 00:41 Eos % (Auto) 2.2 % (0.0-4.3) 03/20/19 00:41 Baso % (Auto) 0.6 % (0.0-1.8) 03/20/19 00:41 Lymph # 1.9 K/mm3 (1.2-5.4) 03/20/19 00:41 Otero # 0.6 K/mm3 (0.0-0.8) 03/20/19 00:41 Eos # 0.1 K/mm3 (0.0-0.4) 03/20/19 00:41 Baso # 0.0 K/mm3 (0.0-0.1) 03/20/19 00:41 Seg Neutrophils % 58.5 % (40.0-70.0) 03/20/19 00:41 Seg Neutrophils # 3.8 K/mm3 (1.8-7.7) 03/20/19 00:41 Sodium 142 mmol/L (137-145) 03/20/19 00:41 Potassium 4.4 mmol/L (3.6-5.0) 03/20/19 00:41 Chloride 106.7 mmol/L (98-107) 03/20/19 00:41 Carbon Dioxide 20 mmol/L (22-30) L 03/20/19 00:41 20 mmol/L 03/20/19 00:41 BUN 42 mg/dL (7-17) H 03/20/19 00:41 3.9 mg/dL (0.7-1.2) H 03/20/19 00:41 Estimated GFR 14 ml/min 03/20/19 00:41 11 % 03/20/19 00:41 Glucose 153 mg/dL (65-100) H 03/20/19 00:41 Calcium 9.4 mg/dL (8.4-10.2) 03/20/19 00:41 0.015 ng/mL (0.00-0.029) 03/20/19 00:41 Assessment and Plan Assessment and plan: 1. Unstable Angina r/o ACS 2. H/o CAD/[place] 3. CHF (EF unknown) 4. Ischemic cardiomyopathy, angina, 5. Accelerated HTN 6. Hyperlipidemia\ 7 DM type 2 8. Hypothyroidism 9. CKD (stage 3-4) Plan: Patient is admitted for chest pain r/o ACS check BNP now Consult cardiology for chest pain Continue to monitor troponin every 6 hours 2 more Gentle hydration for renal chest perfusion Resume home meds Accu-Chek ACHS with insulin per sliding scale Repeat CBC BMP in the a.m. Advance Directives: Yes VTE prophylaxis?: Chemical Plan of care discussed with patient/family: Yes <PREETI WILSONHO Bettencourt - Last Filed: 03/24/19 21:54> History of Present Illness Date of admission: 03/20/19 02:24 Medications and Allergies Active Meds: Active Medications Acetaminophen (Tylenol) 650 mg PO Q4H PRN PRN Reason: Pain MILD(1-3)/Fever >100.5/SOTELO Aspirin (Ecotrin) 325 mg PO QDAY [facility] Aspirin (Baby Aspirin) 81 mg PO DAILY [facility] Atorvastatin Calcium (Lipitor) 80 mg PO QHS [facility] Heparin Sodium (Porcine) (Heparin) 5,000 unit SUB-Q Q12HR [facility] Hydralazine HCl (Apresoline) 20 mg IV Q4H PRN PRN Reason: Hypertension Insulin Glargine (Lantus) 5 units SUB-Q QHS [facility] Insulin Human Regular (Humulin R) 0 units SUB-Q ACHS KELSEY; Protocol Levothyroxine Sodium (Synthroid) 75 mcg PO QAM [facility] Metoprolol Tartrate (Lopressor) 25 mg PO BID [facility] Nitroglycerin (Nitrostat) 0.4 mg SL Q5M PRN PRN Reason: Chest Pain Ondansetron HCl (Zofran) 4 mg IV Q8H PRN PRN Reason: Nausea And Vomiting Pantoprazole Sodium (Protonix) 40 mg PO QDAY [facility] Pregabalin (Lyrica) mg PO DAILY [facility] Ranolazine (Ranexa Er) 1,000 mg PO BID [facility] Sodium Bicarbonate (Sodium Bicarbonate) 650 mg PO TID [facility] Sodium Chloride (Sodium Chloride Flush Syringe 10 Ml) 10 ml IV BID [facility] Sodium Chloride (Sodium Chloride Flush Syringe 10 Ml) 10 ml IV PRN PRN PRN Reason: LINE FLUSH Sodium Chloride (Sodium Chloride Flush Syringe 10 Ml) 10 ml IV PRN PRN PRN Reason: LINE FLUSH Sucralfate (Carafate) 1 gm PO TID [facility] Exam - Constitutional Vitals: Temp Pulse Resp BP Pulse Ox 97.9 F 71 17 160/74 100 03/20/19 01:03 03/20/19 02:30 03/20/19 02:30 03/20/19 02:30 03/20/19 02:30 Results - Labs CBC & Chem 7: 03/21/19 05:20 03/21/19 05:20 Labs: Laboratory Last Values WBC 6.6 K/mm3 (4.5-11.0) 03/20/19 00:41 RBC 3.00 M/mm3 (3.65-5.03) L 03/20/19 00:41 Hgb 9.0 gm/dl (10.1-14.3) L 03/20/19 00:41 Hct 27.6 % (30.3-42.9) L 03/20/19 00:41 MCV 92 fl (79-97) 03/20/19 00:41 MCH 30 pg (28-32) 03/20/19 00:41 MCHC 33 % (30-34) 03/20/19 00:41 RDW 15.9 % (13.2-15.2) H 03/20/19 00:41 Plt Count 245 K/mm3 (140-440) 03/20/19 00:41 Lymph % (Auto) 28.9 % (13.4-35.0) 03/20/19 00:41 Otero % (Auto) 9.8 % (0.0-7.3) H 03/20/19 00:41 Eos % (Auto) 2.2 % (0.0-4.3) 03/20/19 00:41 Baso % (Auto) 0.6 % (0.0-1.8) 03/20/19 00:41 Lymph # 1.9 K/mm3 (1.2-5.4) 03/20/19 00:41 Otero # 0.6 K/mm3 (0.0-0.8) 03/20/19 00:41 Eos # 0.1 K/mm3 (0.0-0.4) 03/20/19 00:41 Baso # 0.0 K/mm3 (0.0-0.1) 03/20/19 00:41 Seg Neutrophils % 58.5 % (40.0-70.0) 03/20/19 00:41 Seg Neutrophils # 3.8 K/mm3 (1.8-7.7) 03/20/19 00:41 Sodium 140 mmol/L (137-145) 03/20/19 02:58 Potassium 4.4 mmol/L (3.6-5.0) 03/20/19 02:58 Chloride 106.7 mmol/L (98-107) 03/20/19 02:58 Carbon Dioxide 22 mmol/L (22-30) 03/20/19 02:58 16 mmol/L 03/20/19 02:58 BUN 40 mg/dL (7-17) H 03/20/19 02:58 3.9 mg/dL (0.7-1.2) H 03/20/19 02:58 Estimated GFR 14 ml/min 03/20/19 02:58 10 % 03/20/19 02:58 Glucose 165 mg/dL (65-100) H 03/20/19 02:58 Calcium 8.8 mg/dL (8.4-10.2) 03/20/19 02:58 0.015 ng/mL (0.00-0.029) 03/20/19 00:41 Triglycerides 136 mg/dL (2-149) 03/20/19 02:58 Cholesterol 184 mg/dL (50-199) 03/20/19 02:58 118 mg/dL (50-130) 03/20/19 02:58 61 mg/dL (40-59) H 03/20/19 02:58 3.01 % 03/20/19 02:58 Assessment and Plan Assessment and plan: 63-year-old woman with a history of coronary artery disease, hypertension, diabetes, chronic kidney disease, CHF comes to the emergency room with complaints of chest pain in the epigastric area radiating to the left chest and left upper extremity relief with nitroglycerin. Agree with plan as stated above
[2019-03-20] MEDS ORDERED: APRESOLINE IV PRN (02:40)
[2019-03-20 03:25] LABS: Calcium 8.8 mg/dL (8.4-10.2); Chol/HDL Ratio 3.01 %
[2019-03-20] MEDS ORDERED: NITROSTAT SL PRN (03:34)
[2019-03-20 03:49] LABS: Basophils % (Auto) 0.4 % (0.0-1.8); Eosinophils # (Auto) 0.1 K/mm3 (0.0-0.4); Eosinophils % (Auto) 1.7 % (0.0-4.3); Hematocrit 25.3 % (30.3-42.9); Hemoglobin 8.6 gm/dl (10.1-14.3); Lymphocytes # (Auto) 1.5 K/mm3 (1.2-5.4); Lymphocytes % (Auto) 22.7 % (13.4-35.0); Mean Corpuscular HGB Conc 34 % (30-34); Mean Corpuscular Volume 91 fl (79-97); Monocytes # (Auto) 0.6 K/mm3 (0.0-0.8); Platelet Count 228 K/mm3 (140-440); Red Blood Count 2.79 M/mm3 (3.65-5.03); Red Cell Distribution Width 15.8 % (13.2-15.2)
[2019-03-20] MEDS: SYNTHROID PO SCH (06:25)
[2019-03-20] MEDS: HumuLIN R SUB-Q SCH ×4 (08:41→21:47)
[2019-03-20] MEDS: LYRICA PO SCH (09:58)
[2019-03-20] MEDS: LOPRESSOR PO SCH ×2 (09:58→21:45)
[2019-03-20] MEDS: BABY ASPIRIN PO SCH (09:59)
[2019-03-20] MEDS: CARAFATE PO SCH ×3 (09:59→21:47)
[2019-03-20] MEDS: HEPARIN SUB-Q SCH ×2 (09:59→21:47)
[2019-03-20] MEDS: RANEXA ER PO SCH ×2 (09:59→21:46)
[2019-03-20] MEDS: SODIUM BICARBONATE PO SCH ×3 (09:59→21:45)
[2019-03-20] MEDS: PROTONIX PO SCH (09:59)
[2019-03-20] MEDS: SODIUM CHLORIDE FLUSH SYRINGE 10 ML IV SCH ×2 (10:00→21:50)
--- NOTE | 2019-03-20 11:26 | Consultation ---
History of Present Illness Consult date: 03/20/19 Consult reason: chest pain History of present illness: This is a 63 year old with a history of chronic angina and coronary artery disease on medical therapy. In 2016 a cardiac cath revealed severe diffuse disease and calcified coronaries, not amenable for surgery. Patient underwent limited revascularization at [facility] with stent to the LAD. Her anti- platelets were later stopped due to severe anemia and GI bleed twice in 2017. Her latest echocardiogram showed mild ischemic cardiomyopathy, ejection fraction 40-45% with at least moderate mitral regurgitation. Co-morbidities includes renal failure, hypothyroidism, hypertension and diabetes. Patient was brought to this hospital with chest pain thus this cardiac consultation. Chest pain is non-exertional but has been intermittent for several weeks. Patient reports she takes oral nitroglycerin frequently with minimal relief. Initial labs shows a hematocrit of 25 and a creatinine of 3.9. Troponin of 0.210. Chest x-ray reports cardiomegaly with evidence of mild interstitial edema. An EKG is sinus rhythm with non-specific Twave abnormalities. No significant change from prior EKG. Past History Past Medical History: CAD, diabetes, heart failure, hypertension, hyperlipidemia, stroke Past Surgical History: No surgical history Social history: no significant social history, lives with family Family history: no significant family history Medications and Allergies Allergies Allergy/AdvReac Type Severity Reaction Status Date / Time codeine Allergy Vomiting Verified 01/31/15 09:28 penicillin Allergy Vomiting Verified 05/17/15 11:21 prochlorperazine edisylate Allergy Vomiting Verified 01/31/15 09:28 [From Compazine] prochlorperazine maleate Allergy Vomiting Verified 01/31/15 09:28 [From Compazine] Home Medications Medication Instructions Recorded Confirmed Last Taken Type Nitroglycerin [Nitrostat] 0.4 mg SL Q5M PRN #20 tab 05/19/15 03/20/19 02/22/17 Rx Insulin Glargine [Lantus VIAL] 5 units SUB-Q QHS #20 units 12/01/16 03/20/19 02/21/17 Rx Levothyroxine [Synthroid] 75 mcg PO QAM #30 tablet 12/01/16 03/20/19 02/22/17 Rx Pantoprazole [Protonix TAB] 40 mg PO QDAY #30 tablet 12/01/16 03/20/1902/22/17 Rx AtorvaSTATin [Lipitor] 80 mg PO QHS #30 tablet 01/24/17 03/20/19 Unknown Rx Metoprolol [Lopressor TAB] 25 mg PO BID #60 tablet 01/24/17 03/20/19 02/22/17 Rx Ranolazine ER [Ranexa ER] 1,000 mg PO BID #120 tablet 01/24/17 03/20/19 02/22/17 Rx Aspirin 81 mg PO DAILY 03/20/19 03/20/19 Unknown History Pregabalin [Lyrica] 1 cap PO DAILY 03/20/19 03/20/19 Unknown History Sodium Bicarbonate 650 mg PO TID 03/20/19 03/20/19 Unknown History Sucralfate [Carafate] 1 gm PO TID 03/20/19 03/20/19 Unknown History Active Meds: Active Medications Acetaminophen (Tylenol) 650 mg PO Q4H PRN PRN Reason: Pain MILD(1-3)/Fever >100.5/SOTELO Aspirin (Baby Aspirin) 81 mg PO DAILY [facility] Last Admin: 03/20/19 09:59 Dose: 81 mg Documented by: Atorvastatin Calcium (Lipitor) 80 mg PO QHS [facility] Heparin Sodium (Porcine) (Heparin) 5,000 unit SUB-Q Q12HR [facility] Last Admin: 03/20/19 09:59 Dose: 5,000 unit Documented by: Hydralazine HCl (Apresoline) 20 mg IV Q4H PRN PRN Reason: Hypertension Insulin Glargine (Lantus) 5 units SUB-Q QHS [facility] Insulin Human Regular (Humulin R) 0 units SUB-Q [facility]; Protocol Last Admin: 03/20/19 08:41 Dose: Not Given Documented by: Levothyroxine Sodium (Synthroid) 75 mcg PO QAM@0600 [facility] Last Admin: 03/20/19 06:25 Dose: 75 mcg Documented by: Metoprolol Tartrate (Lopressor) 25 mg PO BID [facility] Last Admin: 03/20/19 09:58 Dose: 25 mg Documented by: Nitroglycerin (Nitrostat) 0.4 mg SL Q5M PRN PRN Reason: Chest Pain Ondansetron HCl (Zofran) 4 mg IV Q8H PRN PRN Reason: Nausea And Vomiting Pantoprazole Sodium (Protonix) 40 mg PO QDAY [facility] Last Admin: 03/20/19 09:59 Dose: 40 mg Documented by: Pregabalin (Lyrica) 75 mg PO DAILY [facility] Last Admin: 03/20/19 09:58 Dose: 75 mg Documented by: Ranolazine (Ranexa Er) 1,000 mg PO BID [facility] Last Admin: 03/20/19 09:59 Dose: 1,000 mg Documented by: Sodium Bicarbonate (Sodium Bicarbonate) 650 mg PO TID [facility] Last Admin: 03/20/19 09:59 Dose: 650 mg Documented by: Sodium Chloride (Sodium Chloride Flush Syringe 10 Ml) 10 ml IV BID [facility] Last Admin: 03/20/19 10:00 Dose: 10 ml Documented by: Sodium Chloride (Sodium Chloride Flush Syringe 10 Ml) 10 ml IV PRN PRN PRN Reason: LINE FLUSH Sodium Chloride (Sodium Chloride Flush Syringe 10 Ml) 10 ml IV PRN PRN PRN Reason: LINE FLUSH Sucralfate (Carafate) 1 gm PO TID [facility] Last Admin: 03/20/19 09:59 Dose: Not Given Documented by: Physical Examination Vital Signs Pulse Resp BP Pulse Ox 97 H 22 205/109 97 03/20/19 00:30 03/20/19 00:30 03/20/19 00:30 03/20/19 00:30 Results 03/20/19 02:58 03/20/19 02:58 Lipids 03/20/19 Range/Units 02:58 Triglycerides 136 (2-149) mg/dL Cholesterol 184 (50-199) mg/dL HDL Cholesterol 61 H (40-59) mg/dL Cholesterol/HDL Ratio 3.01 % CBC 03/20/19 03/20/19 Range/Units 00:41 02:58 WBC 6.6 6.5 (4.5-11.0) K/mm3 RBC 3.00 L 2.79 L (3.65-5.03) M/mm3 Hgb 9.0 L 8.6 L (10.1-14.3) gm/dl Hct 27.6 L 25.3 L (30.3-42.9) % Plt Count 245 228 (140-440) K/mm3 Lymph # 1.9 1.5 (1.2-5.4) K/mm3 [place] # 0.6 0.6 (0.0-0.8) K/mm3 Eos # 0.1 0.1 (0.0-0.4) K/mm3 Baso # 0.0 0.0 (0.0-0.1) K/mm3 Comprehensive Metabolic Panel 03/20/19 03/20/19 Range/Units 00:41 02:58 Sodium 142 140 (137-145) mmol/L Potassium 4.4 4.4 (3.6-5.0) mmol/L Chloride 106.7 106.7 (98-107) mmol/L Carbon Dioxide 20 L 22 (22-30) mmol/L BUN 42 H 40 H (7-17) mg/dL Creatinine 3.9 H 3.9 H (0.7-1.2) mg/dL Glucose 153 H 165 H (65-100) mg/dL Calcium 9.4 8.8 (8.4-10.2) mg/dL Assessment and Plan Chronic angina Hx of CAD antiplatelets previously discontinued due to prior GI bleed, twice in 2017 Ischemic cardiomyopathy, EF 40-45% Moderate MR Anemia Renal disease Hypertension Diabetes Hx of Hypothyroidism Elevated troponin
[2019-03-20] MEDS: IMDUR PO SCH (12:05)
--- NOTE | 2019-03-20 14:24 | Progress Note ---
Subjective Date of service: 03/20/19 Objective - Constitutional Vitals: Vital Signs - 12hr 03/20/19 03/20/19 03/20/19 02:30 03:00 04:00 Temperature Pulse Rate 71 75 69 Respiratory 17 12 15 Rate Blood Pressure 160/74 169/64 169/84 O2 Sat by Pulse 100 100 100 Oximetry 03/20/19 03/20/19 03/20/19 05:00 06:01 07:00 Temperature Pulse Rate 67 66 65 Respiratory 14 14 16 Rate Blood Pressure 151/71 135/65 134/69 O2 Sat by Pulse 100 100 100 Oximetry 03/20/19 03/20/19 03/20/19 07:21 07:30 07:41 Temperature Pulse Rate 64 64 80 Respiratory 15 9 L 14 Rate Blood Pressure 134/69 128/74 128/74 O2 Sat by Pulse 100 100 100 Oximetry 03/20/19 03/20/19 03/20/19 07:51 08:01 08:24 Temperature 97.9 F Pulse Rate 65 65 74 Respiratory 14 14 18 Rate Blood Pressure 128/74 156/74 171/69 O2 Sat by Pulse 100 100 Oximetry 03/20/19 03/20/19 08:26 09:58 Temperature Pulse Rate 65 72 Respiratory 18 Rate Blood Pressure 170/69 O2 Sat by Pulse Oximetry - Labs CBC & Chem 7: 03/20/19 02:58 03/20/19 02:58 Labs: Abnormal lab results 03/20/19 03/20/19 03/20/19 Range/Units 00:41 00:41 02:58 RBC 3.00 L (3.65-5.03) M/mm3 Hgb 9.0 L (10.1-14.3) gm/dl Hct 27.6 L (30.3-42.9) % RDW 15.9 H (13.2-15.2) % [place] % (Auto) 9.8 H (0.0-7.3) % Carbon Dioxide 20 L (22-30) mmol/L BUN 42 H (7-17) mg/dL Creatinine 3.9 H (0.7-1.2) mg/dL Glucose 153 H (65-100) mg/dL POC Glucose (70-105) Troponin T 0.056 H D (0.00-0.029) ng/mL HDL Cholesterol (40-59) mg/dL 05/20/19 05/20/19 05/20/19 Range/Units 02:58 02:58 09:41 RBC 2.79 L (3.65-5.03) M/mm3 Hgb 8.6 L (10.1-14.3) gm/dl Hct 25.3 L (30.3-42.9) % RDW 15.8 H (13.2-15.2) % [place] % (Auto) 9.0 H (0.0-7.3) % Carbon Dioxide (22-30) mmol/L BUN 40 H (7-17) mg/dL Creatinine 3.9 H (0.7-1.2) mg/dL Glucose 165 H (65-100) mg/dL POC Glucose (70-105) Troponin T 0.210 H* D (0.00-0.029) ng/mL HDL Cholesterol 61 H (40-59) mg/dL 03/20/19 Range/Units 11:10 RBC (3.65-5.03) M/mm3 Hgb (10.1-14.3) gm/dl Hct (30.3-42.9) % RDW (13.2-15.2) % [place] % (Auto) (0.0-7.3) % Carbon Dioxide (22-30) mmol/L BUN (7-17) mg/dL Creatinine (0.7-1.2) mg/dL Glucose (65-100) mg/dL POC Glucose 185 H (70-105) Troponin T (0.00-0.029) ng/mL HDL Cholesterol (40-59) mg/dL
[2019-03-20] MEDS ORDERED: ZOFRAN IV ONE (17:52)
[2019-03-20] MEDS ORDERED: LANTUS SUB-Q SCH (22:00)
[2019-03-21] MEDS: SYNTHROID PO SCH (05:12)
[2019-03-21 05:33] LABS: Basophils % (Auto) 0.5 % (0.0-1.8); Eosinophils # (Auto) 0.2 K/mm3 (0.0-0.4); Eosinophils % (Auto) 3.9 % (0.0-4.3); Hematocrit 25.3 % (30.3-42.9); Hemoglobin 8.4 gm/dl (10.1-14.3); Lymphocytes # (Auto) 2.1 K/mm3 (1.2-5.4); Lymphocytes % (Auto) 35.6 % (13.4-35.0); Mean Corpuscular HGB Conc 33 % (30-34); Mean Corpuscular Volume 92 fl (79-97); Monocytes # (Auto) 0.6 K/mm3 (0.0-0.8); Monocytes % (Auto) 9.9 % (0.0-7.3); Platelet Count 237 K/mm3 (140-440); Red Blood Count 2.75 M/mm3 (3.65-5.03); Red Cell Distribution Width 15.8 % (13.2-15.2)
[2019-03-21 05:54] LABS: Calcium 8.8 mg/dL (8.4-10.2)
--- NOTE | 2019-03-21 07:16 | Event Note ---
Date: 03/20/19 Cardiology consult appreciated For [place] in AM Medical management
[2019-03-21] MEDS: CARAFATE PO SCH ×2 (08:00→14:50)
[2019-03-21] MEDS: SODIUM BICARBONATE PO SCH ×2 (08:00→14:49)
[2019-03-21] MEDS ORDERED: LEXISCAN IV ONE ×2 (09:33)
[2019-03-21] MEDS ORDERED: ECOTRIN PO SCH (10:00)
[2019-03-21] MEDS: HumuLIN R SUB-Q SCH ×2 (10:39→11:30)
--- NOTE | 2019-03-21 11:21 | Progress Note ---
Hospitalist Physical - Constitutional Vitals: Temp Pulse Resp BP Pulse Ox 98.3 F 61 16 139/64 100 03/21/19 08:28 03/21/19 10:00 03/21/19 08:28 03/21/19 08:28 03/21/19 08:28 General appearance: Present: mild distress Results - Labs CBC & Chem 7: 03/21/19 05:20 03/21/19 05:20 Labs: Laboratory Last Values WBC 6.0 K/mm3 (4.5-11.0) 03/21/19 05:20 RBC 2.75 M/mm3 (3.65-5.03) L 03/21/19 05:20 Hgb 8.4 gm/dl (10.1-14.3) L 03/21/19 05:20 Hct 25.3 % (30.3-42.9) L 03/21/19 05:20 MCV 92 fl (79-97) 03/21/19 05:20 MCH 30 pg (28-32) 03/21/19 05:20 MCHC 33 % (30-34) 03/21/19 05:20 RDW 15.8 % (13.2-15.2) H 03/21/19 05:20 Plt Count 237 K/mm3 (140-440) 03/21/19 05:20 Lymph % (Auto) 35.6 % (13.4-35.0) H 03/21/19 05:20 [place] % (Auto) 9.9 % (0.0-7.3) H 03/21/19 05:20 Eos % (Auto) 3.9 % (0.0-4.3) 03/21/19 05:20 Baso % (Auto) 0.5 % (0.0-1.8) 03/21/19 05:20 Lymph # 2.1 K/mm3 (1.2-5.4) 03/21/19 05:20 [place] # 0.6 K/mm3 (0.0-0.8) 03/21/19 05:20 Eos # 0.2 K/mm3 (0.0-0.4) 03/21/19 05:20 Baso # 0.0 K/mm3 (0.0-0.1) 03/21/19 05:20 Seg Neutrophils % 50.1 % (40.0-70.0) 03/21/19 05:20 Seg Neutrophils # 3.0 K/mm3 (1.8-7.7) 03/21/19 05:20 Sodium 140 mmol/L (137-145) 03/21/19 05:20 Potassium 4.8 mmol/L (3.6-5.0) 03/21/19 05:20 Chloride 106.7 mmol/L (98-107) 03/21/19 05:20 Carbon Dioxide 21 mmol/L (22-30) L 03/21/19 05:20 17 mmol/L 03/21/19 05:20 BUN 38 mg/dL (7-17) H 03/21/19 05:20 3.7 mg/dL (0.7-1.2) H 03/21/19 05:20 Estimated GFR 15 ml/min 03/21/19 05:20 10 % 03/21/19 05:20 Glucose 100 mg/dL (65-100) 03/21/19 05:20 POC Glucose 104 (70-105) 03/21/19 08:34 5.1 % (4-6) 03/20/19 02:58 Calcium 8.8 mg/dL (8.4-10.2) 03/21/19 05:20 0.210 ng/mL (0.00-0.029) H* D 03/20/19 09:41 Triglycerides 136 mg/dL (2-149) 03/20/19 02:58 Cholesterol 184 mg/dL (50-199) 03/20/19 02:58 118 mg/dL (50-130) 03/20/19 02:58 61 mg/dL (40-59) H 03/20/19 02:58 3.01 % 03/20/19 02:58 Active Medications - Current Medications Current Medications: Generic Name Dose Route Start Last Admin Trade Name Freq PRN Reason Stop Dose Admin Acetaminophen 650 mg 03/20/19 02:24 Tylenol PO Q4H PRN Pain MILD(1-3)/Fever >100.5/SOTELO Aspirin 81 mg 03/20/19 10:00 03/20/19 09:59 Baby Aspirin PO 81 mg DAILY [facility] Administration Atorvastatin Calcium 80 mg 03/20/19 22:00 03/20/19 21:47 Lipitor PO Not Given QHS [facility] Heparin Sodium (Porcine) 5,000 unit 03/20/19 10:00 03/20/19 21:47 Heparin SUB-Q 5,000 unit Q12HR [facility] Administration Hydralazine HCl 20 mg 03/20/19 02:40 Apresoline IV Q4H PRN Hypertension Insulin Glargine 5 units 03/20/19 22:00 03/20/19 21:47 Lantus SUB-Q Not Given QHS [facility] Insulin Human Regular 0 units 03/20/19 07:30 03/21/19 10:39 Humulin R SUB-Q Not Given ACHS [facility] Protocol Isosorbide Mononitrate 60 mg 03/20/19 12:00 03/20/19 12:05 Imdur PO 60 mg QDAY [facility] Administration Levothyroxine Sodium 75 mcg 03/20/19 06:00 03/21/19 05:12 Synthroid PO 75 mcg QAM@0600 [facility] Administration Metoprolol Tartrate 25 mg 03/20/19 10:00 03/20/19 21:45 Lopressor PO 25 mg BID [facility] Administration Nitroglycerin 0.4 mg 03/20/19 03:34 Nitrostat SL Q5M PRN Chest Pain Ondansetron HCl 4 mg 03/20/19 02:24 03/20/19 17:57 Zofran IV 4 mg Q8H PRN Administration Nausea And Vomiting Pantoprazole Sodium 40 mg 03/20/19 10:00 03/20/19 09:59 Protonix PO 40 mg QDAY [facility] Administration Pregabalin 75 mg 03/20/19 10:00 03/20/19 09:58 Lyrica PO 75 mg DAILY [facility] Administration Ranolazine 1,000 mg 03/20/19 10:00 03/20/19 21:46 Ranexa Er PO 1,000 mg BID [facility] Administration Sodium Bicarbonate 650 mg 03/20/19 08:00 03/20/19 21:45 Sodium Bicarbonate PO 650 mg TID [facility] Administration Sodium Chloride 10 ml 03/20/19 10:00 03/20/19 21:50 Sodium Chloride Flush Syringe 10 Ml IV 10 ml BID [facility] Administration Sodium Chloride 10 ml 03/20/19 02:24 Sodium Chloride Flush Syringe 10 Ml IV PRN PRN LINE FLUSH Sodium Chloride 10 ml 03/20/19 02:31 Sodium Chloride Flush Syringe 10 Ml IV PRN PRN LINE FLUSH Sucralfate 1 gm 03/20/19 08:00 03/20/19 21:47 Carafate PO 1 gm TID [facility] Administration
[2019-03-21 11:44] VITALS: BP 161/80
--- NOTE | 2019-03-21 13:57 | Event Note ---
Date: 03/21/19 Patient underwent Lexiscan thallium stress test which showed a small fixed inferoapical defect without ischemia. Recommend conservative medical management for chronic stable angina and diffuse calcific small vessel disease.
[2019-03-21] MEDS: RANEXA ER PO SCH (14:49)
[2019-03-21] MEDS: PROTONIX PO SCH (14:50)
[2019-03-21] MEDS: HEPARIN SUB-Q SCH (14:50)
[2019-03-21] MEDS: IMDUR PO SCH (14:50)
[2019-03-21] MEDS: SODIUM CHLORIDE FLUSH SYRINGE 10 ML IV SCH (14:50)
[2019-03-21] MEDS: LOPRESSOR PO SCH (14:50)
[2019-03-21] MEDS: BABY ASPIRIN PO SCH (14:50)
[2019-03-21] MEDS: LYRICA PO SCH (14:50)
--- NOTE | 2019-03-21 15:01 | Treadmill Report ---
THALLIUM STRESS TEST LEFT VENTRICLE: Left ventricular chamber size is at the upper limits of normal. Perfusion study demonstrates a small fixed inferoapical defect, no significant reversibility in the resting study. Gated analysis demonstrates mild left ventricular systolic dysfunction with ejection fraction calculated at 47%. CONCLUSION: Small fixed inferoapical defect may represent a small prior infarct. There is no reversible ischemia demonstrated. Clinical correlation is recommended. [facility]# [id number] CA/NTS
--- NOTE | 2019-03-21 15:07 | Discharge Summary ---
Providers - Providers Date of Admission: 03/20/19 02:24 Date of discharge: 03/21/19 Attending physician: DEVANTE BELLA 03/20/19 Consult to Cardiac Rehabilitation [CONS] Routine Reason For Exam: Phase I 03/20/19 02:31 Consult to Cardiology [CONS] Routine Consulting Provider: SANTINO BOATENG Reason For Exam: chest pain Primary care physician: JAYJAY HILLMAN Hospitalization Reason for admission: chest pain 1 day duration Condition: Stable Pertinent studies: Chest x-ray; findings consistent with mild CHF Exercise stress test; small fixed inferior pedicle defect present small prior infarct no reversible ischemia EF 47% Hospital course: 63-year-old female patient with with PMHx of CAD, CHF, ischemic cardiomyopathy, angina, HTN, hyperlipidemia, DM type 2, hypothyroidism, , CKD, possible CVA with left-sided weakness,was admitted through ER with c/o chest pain of 1 day duration . She was symptomatically managed subsequently evaluation by cardiology. Medications optimized Underwent stress test which showed small fixed defect consistent previous infarct. Ejection fraction 47%. Patient's symptoms significantly improved Today patient is comfortable no new complaints denies chest pain or shortness of breath Vital signs stable physical examination unremarkable Clear by cardiology for discharge and follow-up per schedule Patient is hemodynamically and clinically stable at discharge Discharge diagnosis; --Acute on chronic angina : stress test. fixed defect, EF 47% --Gastric esophageal reflux disease; continue Protonix --History of coronary artery disease; continue current cardiac medications --Dyslipidemia; on statin --Hypertension; moderate controlled, continue current antihypertensives When necessary medications --Type 2 diabetes mellitus; well controlled Accu-Chek sliding scale coverage and ADA diet, long-acting insulin --Hypothyroidism; stable on Synthroid --Peripheral neuropathy; continue with current Follow cardiology per schedule Disposition: DC- TO HOME OR SELFCARE Time spent for discharge: 32 min Core Measure Documentation - Palliative Care Palliative Care/ Comfort Measures: Not Applicable - Core Measures Any of the following diagnoses?: none Exam - Constitutional Vitals: Temp Pulse Resp BP Pulse Ox 98.3 F 61 16 161/80 100 03/21/19 08:28 03/21/19 10:00 03/21/19 08:28 03/21/19 10:36 03/21/19 08:28 General appearance: Present: no acute distress, well-nourished - EENT Eyes: Present: PERRL, EOM intact - Neck Neck: Present: supple, normal ROM - Respiratory Respiratory effort: normal Respiratory: bilateral: diminished, negative: rales, rhonchi, wheezing - Cardiovascular Rhythm: regular Heart Sounds: Present: S1 & S2 - Extremities Extremities: no ischemia, No edema - Abdominal General gastrointestinal: Present: soft, non-tender, non-distended, normal bowel sounds - Integumentary Integumentary: Present: clear, warm - Musculoskeletal Musculoskeletal: strength equal bilaterally - Psychiatric Psychiatric: appropriate mood/affect, cooperative - Neurologic Neurologic: moves all extremities Plan Activity: advance as tolerated Diet: diabetic, other (cardiac diet) Additional Instructions: If you have persistent chest pain or shortness of breath contact M.D. or go to emergency room Follow up with: JAYJAY HILLMAN MD [Primary Care Provider] - 7 Days SANTINO BOATENG MD [Staff Physician] - 7 Days Prescriptions: ISOSORBIDE MONOnitrate [Imdur ER] 60 mg PO QDAY #30 tablet
== END 2019-03-21 17:24 | disposition home or self-care (01) | DRG 303 ==
LOC: ED 00:15 → 4A 02:24
PROVIDERS: ADMIT Internal Medicine; ATTEND Internal Medicine
DX: I25.110 Atherosclerotic heart disease of native coronary artery with unstable angina pectoris (principal); N17.9 Acute kidney failure, unspecified; I13.2 Hypertensive heart and chronic kidney disease with heart failure and with stage 5 chronic kidney disease, or end stage renal disease; I16.1 Hypertensive emergency; I69.354 Hemiplegia and hemiparesis following cerebral infarction affecting left non-dominant side; N18.4 Chronic kidney disease, stage 4 (severe); I42.9 Cardiomyopathy, unspecified; I50.9 Heart failure, unspecified; E78.5 Hyperlipidemia, unspecified; I34.0 Nonrheumatic mitral (valve) insufficiency; E11.42 Type 2 diabetes mellitus with diabetic polyneuropathy; E03.9 Hypothyroidism, unspecified; I25.5 Ischemic cardiomyopathy; Z88.5 Allergy status to narcotic agent; Z88.0 Allergy status to penicillin; Z88.8 Allergy status to other drugs, medicaments and biological substances; Z79.4 Long term (current) use of insulin; I25.2 Old myocardial infarction; Z95.5 Presence of coronary angioplasty implant and graft; Z90.49 Acquired absence of other specified parts of digestive tract
CPT/HCPCS: 36415; 71045; 78452; 80048; 80061; 82962; 83036; 84484; 85025; 93005; 93010; 93017; 96374; G0378; A9270-GY; A9502; J1644; J1815; J2405; J2785

== ENCOUNTER 2020-01-18 08:31 | Day surgery (SDC) | payer MEDICARE ==
[~2020-01-18 08:31] MED LIST: SODIUM CHLORIDE 0.9% 1000 ML 1,000 ML IV SCH; ceFAZolin/Water 2 GM/20 ML 2 GM/20 ML SYRINGE IV NR
--- NOTE | 2020-01-18 09:23 | Anesthesia Day of Surgery ---
Anesthesia Day of Surgery - Day of Surgery Patient Examined: Yes Patient H&P Reviewed: Yes Patient is NPO: Yes
--- NOTE | 2020-01-18 09:23 | Anesthesia Consultation ---
<RAMON HERNÁNDEZ - Last Filed: 01/18/20 09:20> Anesthesia Consult and Med Hx Date of service: 01/18/20 - Airway Anesthetic Teeth Evaluation: Dentures (upper) ROM Head & Neck: Adequate Mental/Hyoid Distance: Adequate Mallampati Class: Class II Intubation Access Assessment: Probably Good - Pre-Operative Health Status ASA Pre-Surgery Classification: ASA3 Proposed Anesthetic Plan: General, MAC Nerve Block: IS - Pulmonary Hx Smoking: Yes (Former x 30 years, quit 18 years ago) COPD: Yes (Past uses of inhalers) Hx Pneumonia: Yes Hx Sleep Apnea: Yes (No CPAP) - Cardiovascular System Hx Hypertension: Yes Hx Coronary Artery Disease: Yes (take nitroglycerine) Hx Heart Attack/AMI: Yes (x5) Hx Angina: Yes Hx Percutaneous Transluminal Coronary Angioplasty (PTCA): Yes (2017) - Central Nervous System CVA: Yes (x5) Hx Psychiatric Problems: Yes - Gastrointestinal Hx Gastroesophageal Reflux Disease: Yes - Endocrine Hx Renal Disease: Yes (Stage 3 (?)) Hx Non-Insulin Dependent Diabetes: Yes Hx Hypothyroidism: Yes - Hematic Hx Anemia: Yes - Other Systems Hx Cancer: No <RUTH HILLMAN - Last Filed: 01/18/20 09:30> Anesthesia Consult and Med Hx - Pre-Operative Health Status Proposed Anesthetic Plan: MAC Nerve Block: Supraclavicular - Additional Comments Anesthesia Medical History Comments: Given cardiac hx, will plan for regional anesthetic. Discussed with patient and family.
[2020-01-18] MEDS ORDERED: fentaNYL 100 MCG/2 ML INJ IV PRN (09:29)
[2020-01-18] MEDS ORDERED: BUPIVACAINE/PF (0.5%) 5 MG/1 ML 30 ML VIAL INFILTRATI ONE (09:36)
[2020-01-18] MEDS ORDERED: FAMOTIDINE 20 MG/2 ML INJ IV NR (10:00)
[2020-01-18] MEDS ORDERED: MIDAZOLAM 2 MG/2 ML INJ IV NR (10:00)
[2020-01-18 11:05] LABS: Hematocrit 25.1 % (30.3-42.9); Hemoglobin 8.5 gm/dl (10.1-14.3); Mean Corpuscular HGB Conc 34 % (30-34); Mean Corpuscular Volume 97 fl (79-97); Platelet Count 278 K/mm3 (140-440); Red Cell Distribution Width 13.9 % (13.2-15.2)
[2020-01-18 11:08] LABS: Calcium 8.6 mg/dL (8.4-10.2)
[2020-01-18] MEDS ORDERED: MIDAZOLAM 2 MG/2 ML INJ ONE (12:34)
[2020-01-18] MEDS ORDERED: HYDROmorphone 1 MG/1 ML INJ ONE (12:34)
[2020-01-18] MEDS ORDERED: propofoL 200 MG/20 ML VIAL IV ONE ×2 (12:35→14:32)
[2020-01-18] MEDS ORDERED: LIDOCAINE MPF (2%) 20 MG/1 ML VIAL 5 ML ONE (12:37)
[2020-01-18] MEDS ORDERED: PROTAMINE SULFATE 50 MG/5 ML INJ ONE (12:45)
[2020-01-18] MEDS ORDERED: HEPARIN 10,000 UNITS/10 ML VIAL ONE ×2 (12:45→12:46)
[2020-01-18] MEDS ORDERED: SODIUM CHLORIDE 0.9% 250ML 250 ML ONE (12:46)
[2020-01-18] MEDS ORDERED: GELATIN SPONGE SIZE 100 TP ONE ×2 (12:46→15:17)
[2020-01-18] MEDS ORDERED: THROMBIN (RECOMBINANT) 5,000 UNIT VIAL TP ONE ×3 (12:52→15:17)
[2020-01-18] MEDS ORDERED: LIDOCAINE (1%) 10 MG/1 ML VIAL 20 ML MDV ONE (13:35)
[2020-01-18] MEDS ORDERED: BUPIVACAINE/PF (0.25%) 2.5 MG/ML 30 ML VIAL INFILTRATI ONE (13:35)
[2020-01-18] MEDS ORDERED: SODIUM CHLORIDE 0.9% 250 ML IVPB IV ONE (15:03)
[2020-01-18] MEDS ORDERED: HEPARIN 10,000 UNITS/10 ML VIAL IR ONE (15:03)
[2020-01-18] MEDS ORDERED: GELATIN SPONGE 12 X 7 TP ONE (15:04)
[2020-01-18] MEDS ORDERED: LIDOCAINE (1%) 10 MG/1 ML VIAL 20 ML MDV IM ONE (15:05)
[2020-01-18] MEDS ORDERED: PROTAMINE SULFATE 50 MG/5 ML INJ IV ONE (15:05)
[2020-01-18] MEDS ORDERED: oxyCODONE /ACETAMINOPHEN 5-325MG TAB PO PRN (15:53)
--- NOTE | 2020-01-18 15:53 | Post Operative Note ---
Pre-op diagnosis: Stage IV Chronic Kidney Disease Post-op diagnosis: same Procedure: Left Arm AV Graft Insertion Anesthesia: MAC, regional Surgeon: DICK MOREAU Estimated blood loss: other (25ml) Pathology: none Condition: stable Disposition: PACU
--- NOTE | 2020-01-18 15:56 | Short Stay Summary ---
Short Stay Documentation Date of service: 01/18/20 - History H&P: obtained from office Past Medical History: CAD, ESRD, hypertension, stroke - Allergies and Medications Current Medications: Allergies codeine Allergy (Verified 01/31/15 09:28) Vomiting morphine Allergy (Verified 01/04/20 16:25) Itching penicillin Allergy (Verified 05/17/15 11:21) Vomiting prochlorperazine edisylate [From Compazine] Allergy (Verified 01/31/15 09:28) Vomiting prochlorperazine maleate [From Compazine] Allergy (Verified 01/31/15 09:28) Vomiting Home Medications Medication Instructions Recorded Confirmed Last Taken Type Nitroglycerin [Nitrostat] 0.4 mg SL Q5M PRN #20 tab 05/19/15 01/18/20 01/17/20 Rx Insulin Glargine [Lantus VIAL] 5 units SUB-Q QHS #20 units 12/01/16 01/18/20 01/17/20 Rx Levothyroxine [Synthroid] 75 mcg PO QAM #30 tablet 12/01/16 01/18/20 01/17/20 Rx Pantoprazole [Protonix TAB] 40 mg PO QDAY #30 tablet 12/01/16 01/18/20 01/18/20 05:00 Rx AtorvaSTATin [Lipitor] 80 mg PO QHS #30 tablet 01/24/17 01/18/20 01/17/20 Rx Metoprolol [Lopressor TAB] 25 mg PO BID #60 tablet 01/24/17 01/18/20 01/18/20 05:00 Rx Ranolazine ER [Ranexa ER] 1,000 mg PO BID #120 tablet 01/24/17 01/18/20 01/18/20 05:00 Rx Aspirin 81 mg PO DAILY 03/20/19 01/18/20 01/17/20 History Pregabalin 1 cap PO DAILY 03/20/19 01/18/20 01/17/20 History Sodium Bicarbonate 650 mg PO TID 03/20/19 01/18/20 01/18/20 05:00 History Sucralfate [Carafate] 1 gm PO TID 03/20/19 01/18/20 01/18/20 05:00 History ISOSORBIDE MONOnitrate [Imdur ER] 60 mg PO QDAY #30 tablet 03/21/19 01/18/20 01/17/20 Rx Active Medications Famotidine (Pepcid) 20 mg IV PREOP NR Stop: 01/18/20 16:00 Last Admin: 01/18/20 11:59 Dose: 20 mg Documented by: Fentanyl (Sublimaze) 50 mcg IV Q5MIN PRN PRN Reason: Pain , Severe (7-10) Stop: 01/18/20 22:00 Cefazolin Sodium (Ancef/Sterile Water 2 Gm/20 Ml) 2 gm in 20 mls @ 80 mls/hr IV PREOP NR; Protocol Stop: 01/18/20 23:00 Sodium Chloride (Nacl 0.9% 1000 Ml) 1,000 mls @ 42 mls/hr IV DIRECT [facility] Last Admin: 01/18/20 10:50 Dose: 42 mls/hr Documented by: Midazolam HCl (Versed) 2 mg IV PREOP NR Stop: 01/18/20 23:59 Last Admin: 01/18/20 11:34 Dose: 2 mg Documented by: Oxycodone/Acetaminophen (Percocet 5/325) 2 tab PO Q4H PRN PRN Reason: Pain, Moderate (4-6) - Physical exam General appearance: no acute distress Lungs: Normal air movement Heart: Regular rate Extremities: no ischemia - Hospital course Hospital course: the patient was taken the operating room and had a left arm av graft insertion performed. please refer to the operative note concerning details of the procedure. the patient tolerated the procedure well and was discharged home in stable condition. - Disposition Condition at discharge: Stable Disposition: DC- TO HOME OR SELFCARE - Discharge Diagnoses (1) Chronic renal failure, stage 3 (moderate) Status: Acute Short Stay Discharge Plan Follow up with: JAYJAY HILLMAN MD [Primary Care Provider] - 7 Days
[2020-01-18] MEDS ORDERED: ONDANSETRON 4 MG/2 ML INJ ONE (16:09)
--- NOTE | 2020-01-18 16:23 | Operative Report ---
STAFF SURGEON: Dr. Trevor Newsome. PREOPERATIVE DIAGNOSIS: Stage 4 chronic kidney disease. POSTOPERATIVE DIAGNOSIS: Stage 4 chronic kidney disease. PROCEDURE PERFORMED: Left arm AV graft insertion. COMPLICATIONS: None. ESTIMATED BLOOD LOSS: 25 mL. ANESTHESIA: Regional block with MAC. COMPLICATIONS: None. INDICATIONS FOR PROCEDURE: This is a 64-year-old female with stage 4 chronic kidney disease with worsening renal function, in need of a dialysis access. The patient had a workup that demonstrated no suitable veins in the left upper extremity and therefore was requested to undergo AV graft insertion. The patient was explained of the risks, benefits and alternatives of procedure, expressed understanding and wished to proceed. DESCRIPTION OF PROCEDURE: After appropriate consent was obtained, the patient was brought back to the operating room and placed on the operating table in supine position with left arm extended. The patient was given appropriate medication for MAC. The patient had regional block placed by Anesthesia in the left upper extremity. Left arm was prepped and draped in the usual sterile fashion with ChloraPrep. Appropriate preoperative antibiotics were administered. Appropriate timeout was performed, indicating correct patient, procedure and site of procedure. I then began the operation by making a longitudinal incision near the antecubital fossa. This was carried through subcutaneous tissue with a combination of blunt dissection and electrocautery. Dissection was continued through the bicipital aponeurosis, which allowed to expose the brachial artery, which was found to be suitable in size for arterial inflow. This was exposed for appropriate distance both proximally and distally. We then made transverse incision near the axilla. This was carried through the subcutaneous tissue with a combination of blunt dissection and electrocautery. Dissection was continued through the fascia overlying the axillary neurovascular bundle. The axillary vein was identified and found to be suitable in size for venous outflow. This was mobilized for appropriate distance both proximally and distally. I then proceeded to create a subcutaneous tunnel between the 2 incision sites, bringing through a 4-7 mm Propaten graft. The patient was given 5000 units of unfractionated heparin. After appropriate timeout elapsed, the graft was appropriately spatulated. Vascular clamps were placed on the brachial artery both proximally and distally. Longitudinal arteriotomy was made with a #11 blade and extended with Arambula scissors. An end-to-side anastomosis was performed with a running 6-0 Prolene suture. Once complete, flow was established through the graft and had a nice pulsatile flow. The graft was cut to appropriate length and spatulated. Vascular clamps were then placed on the axillary vein both proximally and distally. Longitudinal venotomy was made, extended with Arambula scissors and then end-to-side anastomosis was performed with a running 5-0 Prolene suture. Once complete, flow was reestablished through the graft, had a nice palpable thrill. We then looked to obtain hemostasis along our suture line, which was obtained with hemostatic agents. Once we were satisfied with hemostasis, we then proceeded to close both wounds with deep subcutaneous layer with interrupted 3-0 PDS and the skin was approximated with champ. Appropriate dressing was placed. The patient tolerated the procedure well. The patient emerged from the deep sedation and was sent to recovery in stable condition. All the sponges, instrument and needle counts were correct at completion of the operation. JOB# [id number] JACLYN/SHAMA
[2020-01-18] MEDS ORDERED: ONDANSETRON 4 MG/2 ML INJ IV ONE (16:34)
[2020-01-18 17:07] VITALS: BP 140/75
--- NOTE | 2020-01-18 17:41 | Post Anesthesia Evaluation ---
- Post Anesthesia Evaluation Patient Participated: Yes Airway Patent: Yes Stable Respiratory Function: Yes Nausea/Vomiting: Yes (improved with antiemetics) Temp > 96.8F: Yes Pain Manageable: Yes Adequeate Hydration: Yes Anesthesia Complications: No Block Receding Appropriately: Yes (sensation/motor function still blocked as expected. Sling provided.)
== END 2020-01-18 18:15 | disposition home or self-care (01) ==
LOC: OR 08:31
PROVIDERS: ATTEND Surgery Vascular Surgery
DX: I13.2 Hypertensive heart and chronic kidney disease with heart failure and with stage 5 chronic kidney disease, or end stage renal disease (principal); E11.22 Type 2 diabetes mellitus with diabetic chronic kidney disease; N18.6 End stage renal disease; I50.9 Heart failure, unspecified; E11.42 Type 2 diabetes mellitus with diabetic polyneuropathy; G62.9 Polyneuropathy, unspecified; Z86.73 Personal history of transient ischemic attack (TIA), and cerebral infarction without residual deficits; I25.118 Atherosclerotic heart disease of native coronary artery with other forms of angina pectoris; I42.9 Cardiomyopathy, unspecified; Z95.5 Presence of coronary angioplasty implant and graft; E78.00 Pure hypercholesterolemia, unspecified; J44.9 Chronic obstructive pulmonary disease, unspecified; K21.9 Gastro-esophageal reflux disease without esophagitis; Z90.710 Acquired absence of both cervix and uterus; Z90.721 Acquired absence of ovaries, unilateral; E03.9 Hypothyroidism, unspecified; Z86.2 Personal history of diseases of the blood and blood-forming organs and certain disorders involving the immune mechanism; Z82.49 Family history of ischemic heart disease and other diseases of the circulatory system; Z83.3 Family history of diabetes mellitus; Z82.5 Family history of asthma and other chronic lower respiratory diseases
CPT/HCPCS: 36415; 36830; 80048; 82962; 85027; A4649; C1768; J0690; J1170; J1644; J2250; J2405; J2704; J2720; J7030; J7050; 64450